=== PATIENT | male | born 1945 | race African-American/Black ===

== ENCOUNTER 2023-07-21 09:55 | Observation (INO) | payer OTHER ==
[2023-07-21] MEDS ORDERED: SODIUM CHLORIDE 1,000 ML IV SCH (10:00)
[2023-07-21 11:00] LABS: BASO % 0.5 % (0-2.0); EOS % 0.6 % (0-4.5); HEMATOCRIT 37.9 % (35.4-49); HEMOGLOBIN 12.4 GM/dL (11.7-16.9); LYMPH % 8.6 % (8-40); MCH 29.7 pg (25.7-33.7); MCHC 32.8 g/dl (32.0-35.9); MEAN CELL VOLUME 90.4 fl (80-96); MEAN PLT VOLUME 7.5 fl (7.5-11.1); MONO % 7.1 % (3.8-10.2); NEUT % 83.2 % (42.8-82.8); PLATELET COUNT 199 10^3/uL (134-434); RBC 4.19 M/mm3 (4.00-5.60); RDW 14.3 % (11.9-15.9)
[2023-07-21 11:04] LABS: EPI CELLS 6 /uL (0-25.1); HYALINE CASTS 0 /uL (0-3.1); PH,URINE 5.5 (5.0-8.0); URINE APPEARANCE CLEAR; URINE BACTERIA 3 /uL (0-1359); URINE BILIRUBIN NEGATIVE (NEGATIVE); URINE COLOR YELLOW; URINE GLUCOSE (UA) NEGATIVE (NEGATIVE); URINE KETONE 2+ (NEGATIVE); URINE LEUK ESTERASE NEGATIVE (NEGATIVE); URINE NITRITE NEGATIVE (NEGATIVE); URINE PROTEIN TRACE (NEGATIVE); URINE RBC 32 /uL (0-23.9); URINE UROBILINOGEN 0.2 mg/dL (0.2-1.0); URINE WBC 4 /uL (0-25.8)
[2023-07-21 11:29] LABS: CHLORIDE 101 mmol/L (98-107); POTASSIUM 5.7 mmol/L (3.5-5.1); SODIUM 136 mmol/L (136-145)
[2023-07-21 11:30] LABS: CALCIUM 9.4 mg/dL (8.5-10.1)
[2023-07-21 11:34] LABS: ALBUMIN 4.1 g/dl (3.4-5.0); ANION GAP 10 mmol/L (4-13); BLOOD UREA NITROGEN 18.7 mg/dL (7-18); CO2 25 mmol/L (21-32); CREATININE 0.8 mg/dL (0.55-1.3); GLUCOSE,RANDOM 87 mg/dL (74-106); SGOT/AST 66 U/L (15-37); SGPT/ALT 32 U/L (13-61)
[2023-07-21 11:35] LABS: CHOLESTEROL 238 mg/dL (50-200)
[2023-07-21 11:36] LABS: TOT PROT 9.1 g/dl (6.4-8.2)
[2023-07-21 11:37] LABS: BILIRUBIN,TOTAL 0.6 mg/dL (0.2-1); LDL CHOLESTEROL (ONLY SJRH) 159 mg/dL (5-100)
[2023-07-21 11:38] LABS: ALK PHOS 84 U/L (45-117); HDL CHOLESTEROL 61 mg/dL (40-60)
[2023-07-21] MEDS: SODIUM CHLORIDE 0.9% 500 ML INFUS.BAG IV ONE (11:38)
[2023-07-21 12:09] LABS: HEMATOCRIT 36.3 % (35.4-49); HEMOGLOBIN 11.8 GM/dL (11.7-16.9); MCH 29.4 pg (25.7-33.7); MCHC 32.4 g/dl (32.0-35.9); MEAN CELL VOLUME 90.7 fl (80-96); MEAN PLT VOLUME 6.6 fl (7.5-11.1); PLATELET COUNT 197 10^3/uL (134-434); RDW 14.5 % (11.9-15.9); WHITE BLOOD COUNT 9.3 K/mm3 (4.0-10.0)
[2023-07-21] MEDS: ASPIRIN 81 MG CHEWABLE TABLETS PO ONE (12:18)
[2023-07-21] MEDS ORDERED: ASPIRIN 81 MG CHEWABLE TABLETS ONE (12:20)
[2023-07-21 12:34] LABS: POTASSIUM 3.7 mmol/L (3.5-5.1)
[2023-07-21 12:36] LABS: BLOOD UREA NITROGEN 19.4 mg/dL (7-18); CALCIUM 9.2 mg/dL (8.5-10.1)
[2023-07-21 12:37] LABS: ALBUMIN 3.5 g/dl (3.4-5.0)
[2023-07-21 12:39] LABS: CREATININE 0.7 mg/dL (0.55-1.3)
[2023-07-21 12:41] LABS: BILIRUBIN,TOTAL 0.4 mg/dL (0.2-1); TOT PROT 7.7 g/dl (6.4-8.2)
[2023-07-21 12:45] LABS: INR 1.18 (0.83-1.09); PROTHROMBIN TIME (PATIENT) 13.7 SEC (9.7-13.0)
[2023-07-21 12:47] LABS: ACTIVATED PTT 28.2 SECONDS (25.2-36.5)
[2023-07-21] MEDS: ATORVASTATIN CA 10 MG TABLET (FP) PO SCH (21:49)
[2023-07-21 23:43] VITALS: BMI 25.4
[2023-07-22 07:21] LABS: INR 1.11 (0.83-1.09); PROTHROMBIN TIME (PATIENT) 12.9 SEC (9.7-13.0)
[2023-07-22 07:23] LABS: HEMATOCRIT 35.8 % (35.4-49); HEMOGLOBIN 11.9 GM/dL (11.7-16.9); MCH 29.9 pg (25.7-33.7); MCHC 33.2 g/dl (32.0-35.9); MEAN CELL VOLUME 90.2 fl (80-96); MEAN PLT VOLUME 7.4 fl (7.5-11.1); PLATELET COUNT 188 10^3/uL (134-434); RBC 3.97 M/mm3 (4.00-5.60); RDW 14.6 % (11.9-15.9); WHITE BLOOD COUNT 5.6 K/mm3 (4.0-10.0)
[2023-07-22 08:14] LABS: POTASSIUM 4.4 mmol/L (3.5-5.1)
[2023-07-22 08:30] LABS: CALCIUM 8.9 mg/dL (8.5-10.1)
[2023-07-22 08:31] LABS: BLOOD UREA NITROGEN 19.2 mg/dL (7-18)
[2023-07-22 08:34] LABS: CREATININE 0.7 mg/dL (0.55-1.3); PHOSPHOROUS 3.2 mg/dL (2.5-4.9)
[2023-07-22] MEDS: ENOXAPARIN NA (PORCINE) 40 MG/0.4 ML DISP.SYRIN SQ SCH (09:20)
[2023-07-22] MEDS: amLODIPine BESYLATE 5 MG TABLET (FP) PO SCH (09:21)
[2023-07-22] MEDS: MELATONIN 5 MG TABLETS PO SCH (21:52)
[2023-07-23] MEDS: MELATONIN 5 MG TABLETS PO SCH (21:12)
[2023-07-24 08:20] LABS: POTASSIUM 3.7 mmol/L (3.5-5.1)
[2023-07-24 08:25] LABS: ALBUMIN 3.3 g/dl (3.4-5.0); BLOOD UREA NITROGEN 16.5 mg/dL (7-18); CALCIUM 8.8 mg/dL (8.5-10.1)
[2023-07-24 08:28] LABS: CREATININE 0.8 mg/dL (0.55-1.3)
[2023-07-24 08:29] LABS: BILIRUBIN,TOTAL 0.4 mg/dL (0.2-1); TOT PROT 7.4 g/dl (6.4-8.2)
[2023-07-24] MEDS: amLODIPine BESYLATE 5 MG TABLET (FP) PO SCH (09:35)
[2023-07-24] MEDS: ENOXAPARIN NA (PORCINE) 40 MG/0.4 ML DISP.SYRIN SQ SCH (09:36)
[2023-07-24] MEDS: SODIUM CHLORIDE 1,000 ML IV SCH (14:07)
[2023-07-25 20:35] LABS: HEMATOCRIT 43.6 % (35.4-49); HEMOGLOBIN 14.6 GM/dL (11.7-16.9); MCH 29.9 pg (25.7-33.7); MCHC 33.4 g/dl (32.0-35.9); MEAN CELL VOLUME 89.5 fl (80-96); MEAN PLT VOLUME 7.5 fl (7.5-11.1); PLATELET COUNT 240 10^3/uL (134-434); RBC 4.87 M/mm3 (4.00-5.60); RDW 14.9 % (11.9-15.9); WHITE BLOOD COUNT 7.2 K/mm3 (4.0-10.0)
[2023-07-25 20:48] LABS: HEMATOCRIT 42.6 % (35.4-49); HEMOGLOBIN 14.1 GM/dL (11.7-16.9); MCH 29.9 pg (25.7-33.7); MCHC 33.1 g/dl (32.0-35.9); MEAN CELL VOLUME 90.4 fl (80-96); PLATELET COUNT 205 10^3/uL (134-434); RBC 4.71 M/mm3 (4.00-5.60); RDW 14.6 % (11.9-15.9); WHITE BLOOD COUNT 6.4 K/mm3 (4.0-10.0)
[2023-07-25] MEDS: QUEtiapine FUMARATE 25 MG TABLET PO SCH (21:22)
[2023-07-25] MEDS: SODIUM CHLORIDE 1,000 ML IV SCH (21:22)
[2023-07-25] MEDS: PANTOPRAZOLE SODIUM 40 MG VIAL IVPUSH SCH (21:22)
[2023-07-26 07:09] LABS: HEMATOCRIT 38.1 % (35.4-49); HEMOGLOBIN 12.6 GM/dL (11.7-16.9); MCH 29.9 pg (25.7-33.7); MEAN CELL VOLUME 90.5 fl (80-96); MEAN PLT VOLUME 7.3 fl (7.5-11.1); PLATELET COUNT 188 10^3/uL (134-434); RBC 4.21 M/mm3 (4.00-5.60); RDW 14.3 % (11.9-15.9); WHITE BLOOD COUNT 4.6 K/mm3 (4.0-10.0)
[2023-07-26 08:01] LABS: POTASSIUM 4.1 mmol/L (3.5-5.1)
[2023-07-26 08:04] LABS: CALCIUM 8.8 mg/dL (8.5-10.1)
[2023-07-26 08:05] LABS: BLOOD UREA NITROGEN 18.7 mg/dL (7-18)
[2023-07-26 08:07] LABS: CREATININE 0.7 mg/dL (0.55-1.3)
[2023-07-26 08:09] LABS: BILIRUBIN,TOTAL 0.4 mg/dL (0.2-1); TOT PROT 7.1 g/dl (6.4-8.2)
[2023-07-26 09:03] VITALS: RESP 18
[2023-07-26 11:55] LABS: BASO % 1.1 % (0-2.0); EOS % 6.2 % (0-4.5); HEMOGLOBIN 12.2 GM/dL (11.7-16.9); LYMPH % 28.6 % (8-40); MCH 29.2 pg (25.7-33.7); MEAN CELL VOLUME 91.3 fl (80-96); MEAN PLT VOLUME 7.2 fl (7.5-11.1); MONO % 11.8 % (3.8-10.2); NEUT % 52.3 % (42.8-82.8); PLATELET COUNT 195 10^3/uL (134-434); RBC 4.16 M/mm3 (4.00-5.60); RDW 14.4 % (11.9-15.9); WHITE BLOOD COUNT 4.8 K/mm3 (4.0-10.0)
[2023-07-26 18:16] VITALS: BP 118/60; PULSE 71; TEMP 97.2
== END 2023-07-26 19:09 ==
LOC: JER 09:55 → INTOOBSV 11:49 → UNDOADMOB 11:49 → JERBED 11:49 → J4W 19:56
PROVIDERS: ADMIT Internal Medicine; ATTEND Internal Medicine
PROC: 3E023GC Introduction of Other Therapeutic Substance into Muscle, Percutaneous Approach (ICD-10-PCS; principal; 2023-07-21)
PROC: 3E033GC Introduction of Other Therapeutic Substance into Peripheral Vein, Percutaneous Approach (ICD-10-PCS; 2023-07-21)
PROC: 3E0337Z Introduction of Electrolytic and Water Balance Substance into Peripheral Vein, Percutaneous Approach (ICD-10-PCS; 2023-07-21)
DX: R41.82 Altered mental status, unspecified (principal); M62.82 Rhabdomyolysis; R77.8 Other specified abnormalities of plasma proteins; F03.90 Unspecified dementia, unspecified severity, without behavioral disturbance, psychotic disturbance, mood disturbance, and anxiety; Z91.83 Wandering in diseases classified elsewhere; I10 Essential (primary) hypertension; E78.5 Hyperlipidemia, unspecified; Z87.891 Personal history of nicotine dependence; C61 Malignant neoplasm of prostate; Z86.73 Personal history of transient ischemic attack (TIA), and cerebral infarction without residual deficits; Z95.1 Presence of aortocoronary bypass graft; R25.1 Tremor, unspecified
CPT/HCPCS: 36415; 70450-TC; 71045-TC-FY; 80048; 80053; 80061; 81003; 82550; 82553; 82607; 82746; 83036; 83735; 84100; 84443; 84484; 85025; 85027; 85610; 85730; 86850; 86900; 86901; 87635; 93005; 93010; 96361; 96372; 96374; 97116-GP; 97162-GP; 99285-25; G0378

== ENCOUNTER 2024-08-08 14:46 | Inpatient (IN) | payer OTHER ==
[2024-08-08] MEDS ORDERED: ACETAMINOPHEN INJECTION 100 ML ONE (14:51)
[2024-08-08 15:56] LABS: VENOUS O2 SATURATION 62.3 % (70-80); VENOUS PCO2 40.2 mmHg (38-52); VENOUS PH 7.421 (7.310-7.410)
[2024-08-08 15:59] LABS: BASO % 0.7 % (0-2.0); EOS % 0.2 % (0-4.5); HEMATOCRIT 30.4 % (35.4-49); HEMOGLOBIN 9.5 GM/dL (11.7-16.9); MCH 27.1 pg (25.7-33.7); MCHC 31.4 g/dl (32.0-35.9); MEAN CELL VOLUME 86.4 fl (80-96); MONO % 8.2 % (3.8-10.2); NEUT % 69.9 % (42.8-82.8); RBC 3.52 M/mm3 (4.00-5.60); RDW 20.5 % (11.9-15.9)
[2024-08-08] MEDS ORDERED: VANCOMYCIN HCL 1,500 MG in DEXTROSE 5%-WATER - 500 ML IVPB ONE (16:07)
[2024-08-08 16:12] LABS: INR 1.39 (0.83-1.09); PROTHROMBIN TIME (PATIENT) 15.2 SEC (9.7-13.0)
[2024-08-08 16:20] LABS: POTASSIUM 3.9 mmol/L (3.5-5.1)
[2024-08-08] MEDS: ACETAMINOPHEN 1000 MG/100 ML BAG IVPB ONE (16:22)
[2024-08-08] MEDS: SODIUM CHLORIDE 1,000 ML IV STA (16:22)
[2024-08-08 16:23] LABS: ALBUMIN 1.8 g/dl (3.4-5.0); CALCIUM 8.7 mg/dL (8.5-10.1)
[2024-08-08 16:24] LABS: BLOOD UREA NITROGEN 36.7 mg/dL (7-18)
[2024-08-08 16:27] LABS: CREATININE 0.5 mg/dL (0.55-1.3)
[2024-08-08 16:28] LABS: BILIRUBIN,TOTAL 0.6 mg/dL (0.2-1); TOT PROT 5.5 g/dl (6.4-8.2)
[2024-08-08 16:29] LABS: OVALOCYTE 1+; PLATELET COUNT 574 10^3/uL (134-434); TARGET CELLS 1+
[2024-08-08 16:30] LABS: ANISOCYTOSIS 2+; LACTIC ACID 3.4 mmol/L (0.4-2.0); PLATELET ESTIMATE INCREASED
[2024-08-08] MEDS: PIPERACILLIN/TAZOB 3.375 GM 3.375 GM in DEXTROSE 5%-WATER - 50 ML IVPB ONE (17:00)
[2024-08-08] MEDS ORDERED: PIPERACILLIN/TAZOB 3.375 GM 3.375 GM/50 ML BAG IVPB ONE (17:02)
[2024-08-08 17:09] LABS: EPI CELLS 12 /uL (0-25.1); HYALINE CASTS 1 /uL (0-3.1); PH,URINE 6.5 (5.0-8.0); URINE APPEARANCE CLEAR; URINE BACTERIA 1 /uL (0-1359); URINE BILIRUBIN NEGATIVE (NEGATIVE); URINE COLOR YELLOW; URINE GLUCOSE (UA) NEGATIVE (NEGATIVE); URINE KETONE NEGATIVE (NEGATIVE); URINE LEUK ESTERASE NEGATIVE (NEGATIVE); URINE NITRITE NEGATIVE (NEGATIVE); URINE PROTEIN 1+ (NEGATIVE); URINE RBC 31 /uL (0-23.9); URINE WBC 12 /uL (0-25.8)
[2024-08-08] MEDS: SODIUM CHLORIDE 0.9% 500 ML INFUS.BAG IV ONE ×2 (18:40→19:53)
[2024-08-08] MEDS: VANCOMYCIN PREMIX 1.5 GM 1,500 MG/300 ML BAG IVPB ONE (18:41)
[2024-08-08 20:59] LABS: LACTIC ACID 2.2 mmol/L (0.4-2.0)
[2024-08-08] MEDS: MUPIROCIN 2% TOPICAL OINTMENT FOR DECOLONIZATION NS SCH (21:07)
[2024-08-08] MEDS: CHLORHEXIDINE GLUCONATE 4% CLEANSER FOR DECOLONIZATION TP SCH (21:07)
[2024-08-08] MEDS: SODIUM CHLORIDE 1,000 ML IV SCH (21:09)
[2024-08-09] MEDS: PIPERACILLIN/TAZOB 3.375 GM 3.375 GM in DEXTROSE 5%-WATER - 50 ML IVPB SCH (01:37)
[2024-08-09 07:25] LABS: HEMATOCRIT 24.8 % (35.4-49); HEMOGLOBIN 7.9 GM/dL (11.7-16.9); MCH 27.6 pg (25.7-33.7); MCHC 31.7 g/dl (32.0-35.9); MEAN CELL VOLUME 87.3 fl (80-96); PLATELET COUNT 493 10^3/uL (134-434); RBC 2.84 M/mm3 (4.00-5.60); RDW 20.1 % (11.9-15.9); WHITE BLOOD COUNT 10.5 K/mm3 (4.0-10.0)
[2024-08-09 07:41] LABS: CHLORIDE 109 mmol/L (98-107); POTASSIUM 3.7 mmol/L (3.5-5.1); SODIUM 140 mmol/L (136-145)
[2024-08-09 07:43] LABS: ALBUMIN 1.5 g/dl (3.4-5.0); ANION GAP 9 mmol/L (4-13); BLOOD UREA NITROGEN 21.4 mg/dL (7-18); CALCIUM 7.7 mg/dL (8.5-10.1); CO2 22 mmol/L (21-32); MAGNESIUM 1.8 mg/dL (1.8-2.4)
[2024-08-09 07:46] LABS: CREATININE 0.2 mg/dL (0.55-1.3); SGOT/AST 49 U/L (15-37); SGPT/ALT 123 U/L (13-61)
[2024-08-09 07:47] LABS: PHOSPHOROUS 3.3 mg/dL (2.5-4.9)
[2024-08-09 07:48] LABS: BILIRUBIN,TOTAL 0.4 mg/dL (0.2-1); TOT PROT 4.9 g/dl (6.4-8.2)
[2024-08-09 07:49] LABS: ALK PHOS 82 U/L (45-117)
[2024-08-09 07:50] LABS: GLUCOSE,RANDOM 49 mg/dL (74-106)
[2024-08-09] MEDS ORDERED: DEXTROSE 50%-WATER 25 GM/50 ML DISP.SYRIN ONE (07:52)
[2024-08-09] MEDS: DEXTROSE 50%-WATER - 25 GM/50 ML VIAL IVPUSH ONE (08:38)
[2024-08-09] MEDS: D5-NS + 20 MEQ KCL - 20 MEQ/1,000 ML INFUS.BAG IV SCH (08:57)
[2024-08-09] MEDS: ENOXAPARIN NA (PORCINE) 40 MG/0.4 ML DISP.SYRIN SQ SCH (09:25)
[2024-08-09 09:51] LABS: ANISOCYTOSIS 1+; MACROCYTOSIS 0; OVALOCYTE 1+
[2024-08-09] MEDS: ROSUVASTATIN CA 5 MG TABLET PO SCH (22:57)
[2024-08-10] MEDS: PIPERACILLIN/TAZOB 3.375 GM 50 ML IVPB SCH (03:30)
[2024-08-10] MEDS: VANCOMYCIN 1 GM PREMIX (F) 1 GM/200 ML BAG IVPB ONE (06:47)
[2024-08-10] MEDS: amLODIPine BESYLATE 5 MG TABLET (FP) PO SCH (10:09)
[2024-08-10] MEDS: VANCOMYCIN 1 GM PREMIX (F) 1 GM/200 ML BAG IVPB SCH (16:00)
[2024-08-10] MEDS: PIPERACILLIN/TAZOB 3.375 GM 3.375 GM in DEXTROSE 5%-WATER - 50 ML IVPB SCH (19:47)
[2024-08-10] MEDS: DEXTROSE 50%-WATER - 25 GM/50 ML VIAL IVPUSH ONE (19:47)
[2024-08-10] MEDS: VANCOMYCIN 1,000 MG in DEXTROSE 5%-WATER - 250 ML IVPB SCH (19:48)
[2024-08-10] MEDS: D5-NS + 20 MEQ KCL - 20 MEQ/1,000 ML INFUS.BAG IV SCH (20:16)
[2024-08-10] MEDS: ASCORBIC ACID 250 MG TABLET (FP) PEG SCH (21:45)
[2024-08-11] MEDS: ACETAMINOPHEN 650 MG/20.3 ML ORAL SOLUTION (CUPS) PEG ONE (08:07)
[2024-08-11 10:04] LABS: EOS % 0.6 % (0-4.5); HEMATOCRIT 23.8 % (35.4-49); HEMOGLOBIN 7.2 GM/dL (11.7-16.9); LYMPH % 6.6 % (8-40); MCH 26.6 pg (25.7-33.7); MCHC 30.3 g/dl (32.0-35.9); MEAN CELL VOLUME 87.7 fl (80-96); MONO % 3.8 % (3.8-10.2); PLATELET COUNT 410 10^3/uL (134-434); RBC 2.71 M/mm3 (4.00-5.60); RDW 20.4 % (11.9-15.9); WHITE BLOOD COUNT 13.7 K/mm3 (4.0-10.0)
[2024-08-11] MEDS: ENOXAPARIN NA (PORCINE) 40 MG/0.4 ML DISP.SYRIN SQ SCH (10:36)
[2024-08-11] MEDS: MULTIVITAMINS (DAILY MVI) TABLET (FP) PO SCH (10:36)
[2024-08-11] MEDS: ZINC SULFATE 220 MG CAPSULE (FP) PEG SCH (10:37)
[2024-08-11 10:53] LABS: POTASSIUM 3.1 mmol/L (3.5-5.1)
[2024-08-11 11:00] LABS: BILIRUBIN,TOTAL 0.2 mg/dL (0.2-1)
[2024-08-11 11:15] LABS: ALBUMIN 1.4 g/dl (3.4-5.0); CALCIUM 7.8 mg/dL (8.5-10.1)
[2024-08-11 11:16] LABS: BLOOD UREA NITROGEN 12.5 mg/dL (7-18); MAGNESIUM 1.7 mg/dL (1.8-2.4)
[2024-08-11 11:19] LABS: CREATININE 0.2 mg/dL (0.55-1.3)
[2024-08-11 11:20] LABS: TOT PROT 4.7 g/dl (6.4-8.2)
[2024-08-11] MEDS: POTASSIUM CHLORIDE ORAL LIQUID 20 MEQ/15 ML PEG ONE (11:49)
[2024-08-11] MEDS: MEROPENEM-0.9% SODIUM CHLORIDE 1 GM/50 ML BAG IVPB SCH (12:02)
[2024-08-11] MEDS: MAGNESIUM 1GM/D5W - 1 GM/100 ML IVPB IVPB ONE (14:16)
[2024-08-12 08:27] LABS: BASO % 0.3 % (0-2.0); EOS % 1.9 % (0-4.5); HEMATOCRIT 23.1 % (35.4-49); HEMATOCRIT 23.3 % (35.4-49); HEMOGLOBIN 7.3 GM/dL (11.7-16.9); HEMOGLOBIN 7.4 GM/dL (11.7-16.9); LYMPH % 11.2 % (8-40); MCH 26.9 pg (25.7-33.7); MCH 27.4 pg (25.7-33.7); MCHC 31.5 g/dl (32.0-35.9); MCHC 31.8 g/dl (32.0-35.9); MEAN CELL VOLUME 85.6 fl (80-96); MEAN CELL VOLUME 86.2 fl (80-96); NEUT % 79.6 % (42.8-82.8); PLATELET COUNT 384 10^3/uL (134-434); PLATELET COUNT 391 10^3/uL (134-434); RDW 19.8 % (11.9-15.9); RDW 20.4 % (11.9-15.9); WHITE BLOOD COUNT 10.7 K/mm3 (4.0-10.0); WHITE BLOOD COUNT 11.1 K/mm3 (4.0-10.0)
[2024-08-12 08:32] LABS: POTASSIUM 3.7 mmol/L (3.5-5.1)
[2024-08-12 08:39] LABS: CALCIUM 7.5 mg/dL (8.5-10.1)
[2024-08-12 08:40] LABS: ALBUMIN 1.4 g/dl (3.4-5.0); BLOOD UREA NITROGEN 9.8 mg/dL (7-18); MAGNESIUM 1.5 mg/dL (1.8-2.4)
[2024-08-12 08:43] LABS: CREATININE 0.2 mg/dL (0.55-1.3)
[2024-08-12 08:45] LABS: BILIRUBIN,TOTAL 0.2 mg/dL (0.2-1); TOT PROT 4.6 g/dl (6.4-8.2)
[2024-08-12 08:52] LABS: IRON SERUM 20 ug/dL (50-175); TOTAL IRON BINDING CAPACITY 108 ug/dL (250-450)
[2024-08-12 08:55] LABS: PHOSPHOROUS 1.1 mg/dL (2.5-4.9)
[2024-08-12] MEDS: amLODIPine BESYLATE 5 MG TABLET (FP) PEG SCH (10:14)
[2024-08-12] MEDS: MULTIVIT-MINERALS ORAL LIQUID PEG SCH (11:30)
[2024-08-12] MEDS: MAGNESIUM SULFATE IN WATER 2 GM/50 ML IVPB IVPB ONE (11:30)
[2024-08-12] MEDS: METOPROLOL TARTRATE 50 MG TABLET (FP) PEG SCH (11:30)
[2024-08-12] MEDS: NAPH,MB-DB/K PH,MBDB POWDER PACKET PEG ONE (11:30)
[2024-08-12] MEDS ORDERED: NAPH,MB-DB/K PH,MBDB POWDER PACKET PO SCH (14:00)
[2024-08-12] MEDS: ACETAMINOPHEN 650 MG/20.3 ML ORAL SOLUTION (CUPS) PEG PRN (14:42)
[2024-08-12] MEDS: NAPH,MB-DB/K PH,MBDB POWDER PACKET PEG SCH (14:42)
[2024-08-12] MEDS: ROSUVASTATIN CA 5 MG TABLET NR SCH (21:13)
[2024-08-13] MEDS: FAMOTIDINE 20 MG/2.5 ML ORAL LIQUID PEG SCH (10:26)
[2024-08-13 10:33] LABS: BASO % 0.2 % (0-2.0); EOS % 1.3 % (0-4.5); HEMATOCRIT 26.8 % (35.4-49); HEMOGLOBIN 8.4 GM/dL (11.7-16.9); LYMPH % 13.5 % (8-40); MCH 26.9 pg (25.7-33.7); MCHC 31.3 g/dl (32.0-35.9); MEAN CELL VOLUME 85.9 fl (80-96); MEAN PLT VOLUME 7.1 fl (7.5-11.1); MONO % 7.7 % (3.8-10.2); NEUT % 77.3 % (42.8-82.8); PLATELET COUNT 414 10^3/uL (134-434); RBC 3.11 M/mm3 (4.00-5.60); RDW 20.1 % (11.9-15.9); WHITE BLOOD COUNT 10.9 K/mm3 (4.0-10.0)
[2024-08-13 10:50] LABS: POTASSIUM 4.2 mmol/L (3.5-5.1)
[2024-08-13 10:52] LABS: ALBUMIN 1.5 g/dl (3.4-5.0)
[2024-08-13 10:53] LABS: BLOOD UREA NITROGEN 12.6 mg/dL (7-18); MAGNESIUM 1.8 mg/dL (1.8-2.4)
[2024-08-13 10:56] LABS: CREATININE 0.2 mg/dL (0.55-1.3); PHOSPHOROUS 2.9 mg/dL (2.5-4.9)
[2024-08-13 10:57] LABS: BILIRUBIN,TOTAL 0.2 mg/dL (0.2-1)
[2024-08-13] MEDS: MAGNESIUM OXIDE 400 MG TABLET (FP) GT ONE (12:15)
[2024-08-13] MEDS: COLLAGENASE CLOSTRIDIUM HIST. 30 GRAMS TUBE TP SCH (13:45)
[2024-08-13 14:16] VITALS: BMI 18.9
[2024-08-13] MEDS: VANCOMYCIN 1 GM PREMIX (F) 1 GM/200 ML BAG IVPB SCH (21:59)
[2024-08-14 07:56] LABS: BASO % 0.6 % (0-2.0); EOS % 2.2 % (0-4.5); HEMATOCRIT 23.3 % (35.4-49); HEMOGLOBIN 7.4 GM/dL (11.7-16.9); LYMPH % 17.1 % (8-40); MCH 27.2 pg (25.7-33.7); MCHC 31.7 g/dl (32.0-35.9); MEAN PLT VOLUME 7.7 fl (7.5-11.1); MONO % 9.1 % (3.8-10.2); PLATELET COUNT 349 10^3/uL (134-434); RBC 2.71 M/mm3 (4.00-5.60); RDW 19.6 % (11.9-15.9); WHITE BLOOD COUNT 9.2 K/mm3 (4.0-10.0)
[2024-08-14] MEDS: HEPARIN NA (PORCINE) 5,000 UNITS/ML 1ML VIAL SQ SCH (22:00)
[2024-08-15 09:00] LABS: BASO % 0.2 % (0-2.0); EOS % 0.4 % (0-4.5); HEMATOCRIT 26.4 % (35.4-49); HEMOGLOBIN 8.3 GM/dL (11.7-16.9); LYMPH % 7.9 % (8-40); MCH 26.9 pg (25.7-33.7); MCHC 31.5 g/dl (32.0-35.9); MEAN CELL VOLUME 85.3 fl (80-96); MEAN PLT VOLUME 7.8 fl (7.5-11.1); MONO % 5.7 % (3.8-10.2); NEUT % 85.8 % (42.8-82.8); PLATELET COUNT 359 10^3/uL (134-434); RDW 19.8 % (11.9-15.9); WHITE BLOOD COUNT 11.7 K/mm3 (4.0-10.0)
[2024-08-15 09:17] LABS: POTASSIUM 3.8 mmol/L (3.5-5.1)
[2024-08-15 09:23] LABS: ALBUMIN 1.5 g/dl (3.4-5.0); BLOOD UREA NITROGEN 15.8 mg/dL (7-18); CALCIUM 7.8 mg/dL (8.5-10.1); MAGNESIUM 1.8 mg/dL (1.8-2.4)
[2024-08-15 09:26] LABS: CREATININE 0.2 mg/dL (0.55-1.3); PHOSPHOROUS 2.5 mg/dL (2.5-4.9)
[2024-08-15 09:27] LABS: BILIRUBIN,TOTAL 0.2 mg/dL (0.2-1)
[2024-08-15 09:28] LABS: TOT PROT 4.8 g/dl (6.4-8.2)
[2024-08-15] MEDS: SODIUM CHLORIDE 1,000 ML IV STA (23:28)
[2024-08-16] MEDS ORDERED: ALBUTEROL SO4 2.5/IPRATROPIUM 0.5 INH SOL 3 ML VIAL.NEB. NEB PRN (08:14)
[2024-08-16 09:55] LABS: BASO % 0.3 % (0-2.0); EOS % 0.4 % (0-4.5); HEMATOCRIT 22.6 % (35.4-49); MCH 26.3 pg (25.7-33.7); MCHC 30.8 g/dl (32.0-35.9); MEAN CELL VOLUME 85.6 fl (80-96); MEAN PLT VOLUME 7.8 fl (7.5-11.1); MONO % 4.9 % (3.8-10.2); NEUT % 86.4 % (42.8-82.8); PLATELET COUNT 354 10^3/uL (134-434); RBC 2.64 M/mm3 (4.00-5.60); RDW 19.5 % (11.9-15.9); WHITE BLOOD COUNT 17.2 K/mm3 (4.0-10.0)
[2024-08-16 10:00] LABS: HEMOGLOBIN 6.9 GM/dL (11.7-16.9)
[2024-08-16] MEDS ORDERED: PANTOPRAZOLE SODIUM 40 MG VIAL IVPUSH SCH (10:00)
[2024-08-16] MEDS ORDERED: PANTOPRAZOLE SODIUM 40 MG in SODIUM CHLORIDE 100 ML IVPB SCH (10:00)
[2024-08-16 10:14] LABS: POTASSIUM 3.8 mmol/L (3.5-5.1)
[2024-08-16 10:26] LABS: ALBUMIN 1.4 g/dl (3.4-5.0); BLOOD UREA NITROGEN 20.8 mg/dL (7-18); CALCIUM 7.6 mg/dL (8.5-10.1); CREATININE 0.3 mg/dL (0.55-1.3); MAGNESIUM 1.8 mg/dL (1.8-2.4)
[2024-08-16 10:28] LABS: BILIRUBIN,TOTAL 0.3 mg/dL (0.2-1); TOT PROT 4.6 g/dl (6.4-8.2)
[2024-08-16] MEDS: PANTOPRAZOLE SODIUM 40 MG VIAL IVPUSH SCH (12:58)
[2024-08-16] MEDS: ERTAPENEM SODIUM 1 GM in SODIUM CHLORIDE 50 ML IVPB SCH (13:58)
[2024-08-16] MEDS: PANTOPRAZOLE SODIUM 160 MG in SODIUM CHLORIDE 290 ML IVPB SCH (20:00)
[2024-08-17 08:50] LABS: POTASSIUM 3.8 mmol/L (3.5-5.1)
[2024-08-17 08:58] LABS: CALCIUM 8.3 mg/dL (8.5-10.1)
[2024-08-17 08:59] LABS: ALBUMIN 1.6 g/dl (3.4-5.0); BLOOD UREA NITROGEN 13.6 mg/dL (7-18); MAGNESIUM 1.8 mg/dL (1.8-2.4)
[2024-08-17 09:02] LABS: CREATININE 0.3 mg/dL (0.55-1.3)
[2024-08-17 09:03] LABS: BILIRUBIN,TOTAL 1.1 mg/dL (0.2-1)
[2024-08-17] MEDS: MINERAL OIL/PET HY-PHL TOPICAL OINTMENT 454 GM JAR TP SCH (11:45)
[2024-08-17 12:38] LABS: BASO % 0.5 % (0-2.0); EOS % 0.4 % (0-4.5); HEMATOCRIT 29.5 % (35.4-49); HEMOGLOBIN 9.5 GM/dL (11.7-16.9); LYMPH % 7.3 % (8-40); MCH 27.3 pg (25.7-33.7); MCHC 32.1 g/dl (32.0-35.9); MEAN CELL VOLUME 84.8 fl (80-96); MEAN PLT VOLUME 7.7 fl (7.5-11.1); MONO % 5.3 % (3.8-10.2); NEUT % 86.5 % (42.8-82.8); PLATELET COUNT 345 10^3/uL (134-434); RBC 3.48 M/mm3 (4.00-5.60); RDW 19.3 % (11.9-15.9); WHITE BLOOD COUNT 18.1 K/mm3 (4.0-10.0)
[2024-08-17 13:03] LABS: POTASSIUM 3.9 mmol/L (3.5-5.1)
[2024-08-17 13:05] LABS: ALBUMIN 1.6 g/dl (3.4-5.0); BLOOD UREA NITROGEN 14.6 mg/dL (7-18); CALCIUM 8.2 mg/dL (8.5-10.1)
[2024-08-17 13:08] LABS: CREATININE 0.3 mg/dL (0.55-1.3)
[2024-08-17 13:10] LABS: BILIRUBIN,TOTAL 0.7 mg/dL (0.2-1); TOT PROT 5.1 g/dl (6.4-8.2)
[2024-08-17] MEDS: DEXTROSE 5%-NORMAL SALINE 1,000 ML IV SCH (14:25)
[2024-08-17] MEDS: PANTOPRAZOLE SODIUM 40 MG VIAL IVPUSH SCH (22:04)
[2024-08-18 08:41] LABS: POTASSIUM 3.7 mmol/L (3.5-5.1)
[2024-08-18 08:49] LABS: CALCIUM 8.1 mg/dL (8.5-10.1)
[2024-08-18 08:50] LABS: ALBUMIN 1.6 g/dl (3.4-5.0); BLOOD UREA NITROGEN 9.8 mg/dL (7-18)
[2024-08-18 08:53] LABS: CREATININE 0.3 mg/dL (0.55-1.3); PHOSPHOROUS 3.1 mg/dL (2.5-4.9)
[2024-08-18 08:54] LABS: BILIRUBIN,TOTAL 0.8 mg/dL (0.2-1)
[2024-08-18 21:35] VITALS: TEMP 98.2
[2024-08-19 07:18] VITALS: BP 125/69; PULSE 90; RESP 18
[2024-08-19 08:33] LABS: BASO % 0.6 % (0-2.0); EOS % 1.3 % (0-4.5); HEMATOCRIT 30.6 % (35.4-49); HEMOGLOBIN 9.8 GM/dL (11.7-16.9); LYMPH % 8.5 % (8-40); MCH 27.6 pg (25.7-33.7); MEAN CELL VOLUME 86.3 fl (80-96); MEAN PLT VOLUME 7.6 fl (7.5-11.1); MONO % 6.3 % (3.8-10.2); NEUT % 83.3 % (42.8-82.8); PLATELET COUNT 421 10^3/uL (134-434); RBC 3.55 M/mm3 (4.00-5.60); RDW 18.8 % (11.9-15.9); WHITE BLOOD COUNT 10.7 K/mm3 (4.0-10.0)
[2024-08-19 09:01] LABS: POTASSIUM 3.5 mmol/L (3.5-5.1)
[2024-08-19 09:22] LABS: ALBUMIN 1.6 g/dl (3.4-5.0); BLOOD UREA NITROGEN 11.4 mg/dL (7-18); MAGNESIUM 2.3 mg/dL (1.8-2.4)
[2024-08-19 09:24] LABS: CREATININE 0.3 mg/dL (0.55-1.3)
[2024-08-19 09:25] LABS: PHOSPHOROUS 2.3 mg/dL (2.5-4.9)
[2024-08-19 09:26] LABS: TOT PROT 5.1 g/dl (6.4-8.2)
[2024-08-19 09:28] LABS: BILIRUBIN,TOTAL 0.6 mg/dL (0.2-1)
== END 2024-08-19 15:41 | DRG 871 ==
LOC: JER 14:46 → JERBED 17:32 → JICU 18:36 → J8W 08-09 17:10
PROVIDERS: ADMIT Internal Medicine Pulmonary Disease; ATTEND Nurse Practitioner Family
PROC: 05HM33Z Insertion of Infusion Device into Right Internal Jugular Vein, Percutaneous Approach (ICD-10-PCS; 2024-08-08)
PROC: 30233N1 Transfusion of Nonautologous Red Blood Cells into Peripheral Vein, Percutaneous Approach (ICD-10-PCS; principal; 2024-08-16)
DX: A41.59 Other Gram-negative sepsis (principal); E43 Unspecified severe protein-calorie malnutrition; J69.0 Pneumonitis due to inhalation of food and vomit; R53.2 Functional quadriplegia; J96.01 Acute respiratory failure with hypoxia; L89.213 Pressure ulcer of right hip, stage 3; E44.0 Moderate protein-calorie malnutrition; Z68.1 Body mass index [BMI] 19.9 or less, adult; R64 Cachexia; E87.20 Acidosis, unspecified; I10 Essential (primary) hypertension; L89.020 Pressure ulcer of left elbow, unstageable; F03.90 Unspecified dementia, unspecified severity, without behavioral disturbance, psychotic disturbance, mood disturbance, and anxiety; D63.8 Anemia in other chronic diseases classified elsewhere; I25.10 Atherosclerotic heart disease of native coronary artery without angina pectoris; E83.39 Other disorders of phosphorus metabolism; E78.5 Hyperlipidemia, unspecified; I48.91 Unspecified atrial fibrillation; L89.516 Pressure-induced deep tissue damage of right ankle; L89.626 Pressure-induced deep tissue damage of left heel; L89.322 Pressure ulcer of left buttock, stage 2; L89.222 Pressure ulcer of left hip, stage 2; L89.610 Pressure ulcer of right heel, unstageable; L89.896 Pressure-induced deep tissue damage of other site; R74.01 Elevation of levels of liver transaminase levels
CPT/HCPCS: 0241U-QW; 36415; 36430; 36511; 70450-TC; 71045-TC-FY; 73030-TC-RT-FY; 74018-TC-FY; 74176-TC; 76705-TC; 80053; 81003; 82272; 82550; 82607; 82728; 82746; 82803; 82962; 83540; 83550; 83605; 83735; 84100; 84484; 85025; 85027; 85610; 85730; 86704; 86708; 86803; 86850; 86900; 86901; 86922; 87040; 87081; 87086; 87186; 87340; 87481; 87517; 87899; 93005; 93010; 97161-GP; 99285-25; G0480; J0131; J1644; P9038; P9058

== ENCOUNTER 2024-08-23 12:01 | Inpatient (IN) | payer OTHER ==
[2024-08-23 13:25] LABS: ABSOLUTE IMMATURE GRANULOCYTES 0.04 x10^3/uL (0.0-0.031); BASOPHILS # 0.08 x10^3/uL (0.01-0.08); EOSINOPHIL % 1.4 % (0.8-7.0); EOSINOPHILS # 0.11 x10^3/uL (0.04-0.54); HEMATOCRIT 29.2 % (40.1-51.0); HEMOGLOBIN 8.8 g/dL (13.7-17.5); MCHC 30.1 g/dl (32.3-36.5); MEAN CELL VOLUME 89.6 fl (79.0-92.2); MEAN PLT VOLUME 9.4 fl (9.4-12.4); MONOCYTE # 0.77 x10^3/uL (0.30-0.82); MONOCYTE % 9.6 % (5.3-12.2); PLATELET COUNT # 446 x10^3/uL (163-337)
[2024-08-23 13:31] LABS: INR 1.75 (0.83-1.09); PROTHROMBIN TIME (PATIENT) 19.3 SEC (9.7-13.0)
[2024-08-23 13:34] LABS: ACTIVATED PTT 31.3 SECONDS (25.2-36.5)
[2024-08-23 13:46] LABS: POTASSIUM 4.2 mmol/L (3.5-5.1)
[2024-08-23 13:49] LABS: ALBUMIN 1.8 g/dl (3.4-5.0); BLOOD UREA NITROGEN 26.6 mg/dL (7-18); CALCIUM 8.6 mg/dL (8.5-10.1)
[2024-08-23 13:53] LABS: BILIRUBIN,TOTAL 0.3 mg/dL (0.2-1); TOT PROT 5.7 g/dl (6.4-8.2)
[2024-08-23 14:00] LABS: CREATININE 0.3 mg/dL (0.55-1.3)
[2024-08-23 14:03] LABS: VENOUS BASE EXCESS 1.9 mmol/L (-2-2); VENOUS O2 SATURATION 90.6 % (70-80); VENOUS PCO2 41.4 mmHg (38-52); VENOUS PH 7.424 (7.310-7.410)
[2024-08-23] MEDS: LACTATED RINGERS SOLUTION 1000 ML INFUS.BAG IV ONE ×2 (14:30→17:07)
[2024-08-23] MEDS: PIPERACILLIN/TAZOB 4.5 GM 4.5 GM in DEXTROSE 5%-WATER 100 ML IVPB ONE (17:07)
[2024-08-23] MEDS ORDERED: PIPERACILLIN/TAZOB 4.5 GM 4.5 GM/100 ML BAG IVPB ONE (17:08)
[2024-08-23] MEDS ORDERED: VANCOMYCIN 1 GM PREMIX (F) 1 GM/200 ML BAG ONE (18:01)
[2024-08-23] MEDS: VANCOMYCIN 1,000 MG in DEXTROSE 5%-WATER - 250 ML IVPB ONE (18:20)
[2024-08-23] MEDS: ROSUVASTATIN CA 5 MG TABLET NR SCH (22:23)
[2024-08-23] MEDS: QUEtiapine FUMARATE 25 MG TABLET PEG SCH (22:23)
[2024-08-23] MEDS: METOPROLOL TARTRATE 50 MG TABLET (FP) PEG SCH (22:24)
[2024-08-23] MEDS: MINERAL OIL/PET HY-PHL TOPICAL OINTMENT 454 GM JAR TP SCH (22:24)
[2024-08-24] MEDS ORDERED: PIPERACILLIN/TAZOB 3.375 GM 3.375 GM in DEXTROSE 5%-WATER - 50 ML IVPB SCH (01:00)
[2024-08-24 01:18] VITALS: BMI 19.7
[2024-08-24] MEDS: PIPERACILLIN/TAZOB 3.375 GM 3.375 GM in DEXTROSE 5%-WATER - 50 ML IVPB SCH (02:19)
[2024-08-24 06:49] LABS: HEMATOCRIT 28.6 % (40.1-51.0); HEMOGLOBIN 8.7 g/dL (13.7-17.5); MCHC 30.4 g/dl (32.3-36.5); MEAN CELL VOLUME 88.3 fl (79.0-92.2); MEAN PLT VOLUME 9.8 fl (9.4-12.4); PLATELET COUNT # 497 x10^3/uL (163-337); RDW 17.8 % (12.2-16.6)
[2024-08-24 06:53] LABS: EPI CELLS 6 /uL (0-25.1); HYALINE CASTS 0 /uL (0-3.1); PH,URINE 8.5 (5.0-8.0); URINE APPEARANCE CLEAR; URINE BACTERIA 6 /uL (0-1359); URINE BILIRUBIN NEGATIVE (NEGATIVE); URINE COLOR YELLOW; URINE GLUCOSE (UA) 3+ (NEGATIVE); URINE KETONE NEGATIVE (NEGATIVE); URINE LEUK ESTERASE NEGATIVE (NEGATIVE); URINE NITRITE NEGATIVE (NEGATIVE); URINE PROTEIN TRACE (NEGATIVE); URINE RBC 495 /uL (0-23.9); URINE WBC 35 /uL (0-25.8)
[2024-08-24 07:07] LABS: POTASSIUM 3.9 mmol/L (3.5-5.1)
[2024-08-24 07:13] LABS: ALBUMIN 1.8 g/dl (3.4-5.0); CALCIUM 8.5 mg/dL (8.5-10.1)
[2024-08-24 07:17] LABS: CREATININE 0.3 mg/dL (0.55-1.3)
[2024-08-24 07:18] LABS: BILIRUBIN,TOTAL 0.4 mg/dL (0.2-1); TOT PROT 5.5 g/dl (6.4-8.2)
[2024-08-24] MEDS ORDERED: COLLAGENASE CLOSTRIDIUM HIST. 30 GRAMS TUBE TP SCH (10:00)
[2024-08-24] MEDS ORDERED: amLODIPine BESYLATE 5 MG TABLET (FP) PEG SCH (10:00)
[2024-08-24] MEDS: amLODIPine BESYLATE 5 MG TABLET (FP) PEG SCH (10:40)
[2024-08-24] MEDS: ENOXAPARIN NA (PORCINE) 40 MG/0.4 ML DISP.SYRIN SQ SCH (10:40)
[2024-08-24] MEDS: METOPROLOL TARTRATE 50 MG TABLET (FP) PEG SCH (10:40)
[2024-08-24 13:42] VITALS: PULSE 52
[2024-08-24 15:00] VITALS: BP 129/58; RESP 18; TEMP 98.6
[2024-08-24] MEDS ORDERED: AMOX TR/POTASSIUM CLAVULANATE 600 MG/5 ML GT SCH (17:30)
== END 2024-08-24 15:57 | DRG 177 ==
LOC: JER 12:01 → JERBED 17:01 → J4S 20:22
PROVIDERS: ADMIT Internal Medicine; ATTEND Nurse Practitioner Acute Care
DX: J69.0 Pneumonitis due to inhalation of food and vomit (principal); E43 Unspecified severe protein-calorie malnutrition; G93.41 Metabolic encephalopathy; R53.2 Functional quadriplegia; J90 Pleural effusion, not elsewhere classified; Z68.1 Body mass index [BMI] 19.9 or less, adult; R64 Cachexia; F03.90 Unspecified dementia, unspecified severity, without behavioral disturbance, psychotic disturbance, mood disturbance, and anxiety; I10 Essential (primary) hypertension; E78.5 Hyperlipidemia, unspecified; I25.10 Atherosclerotic heart disease of native coronary artery without angina pectoris; Z93.1 Gastrostomy status; R09.02 Hypoxemia
CPT/HCPCS: 0241U-QW; 36415; 71045-TC-FY; 71275-TC; 80053; 81003; 82803; 83605; 83735; 84100; 84484; 85025; 85027; 85379; 85610; 85730; 87081; 87086; 93005; 93010; 99285-25

== ENCOUNTER 2024-10-27 00:44 | Inpatient (IN) | payer OTHER ==
[2024-10-27 02:17] LABS: ABSOLUTE IMMATURE GRANULOCYTES 0.09 x10^3/uL (0.0-0.031); BASOPHILS # 0.03 x10^3/uL (0.01-0.08); EOSINOPHIL % 0.9 % (0.8-7.0); EOSINOPHILS # 0.13 x10^3/uL (0.04-0.54); HEMATOCRIT 19.7 % (40.1-51.0); HEMOGLOBIN 5.9 g/dL (13.7-17.5); MCHC 29.9 g/dl (32.3-36.5); MEAN PLT VOLUME 8.6 fl (9.4-12.4); MONOCYTE # 0.69 x10^3/uL (0.30-0.82); MONOCYTE % 4.7 % (5.3-12.2); PLATELET COUNT 538 x10^3/uL (163-337); RDW 19.6 % (12.2-16.6); VENOUS BASE EXCESS -0.6 mmol/L (-2-2); VENOUS PCO2 39.3 mmHg (38-52); VENOUS PH 7.404 (7.310-7.410)
[2024-10-27] MEDS: SODIUM CHLORIDE 0.9% 500 ML INFUS.BAG IV ONE (02:20)
[2024-10-27] MEDS: VANCOMYCIN 1,000 MG in DEXTROSE 5%-WATER - 250 ML IVPB ONE (02:20)
[2024-10-27 02:23] LABS: INR 1.32 (0.83-1.09); PROTHROMBIN TIME (PATIENT) 14.4 SEC (9.7-13.0)
[2024-10-27 02:26] LABS: ACTIVATED PTT 27.1 SECONDS (25.2-36.5)
[2024-10-27 02:37] LABS: POTASSIUM 4.2 mmol/L (3.5-5.1)
[2024-10-27 02:39] LABS: CALCIUM 8.8 mg/dL (8.5-10.1)
[2024-10-27 02:40] LABS: ALBUMIN 1.6 g/dl (3.4-5.0); BLOOD UREA NITROGEN 21.2 mg/dL (7-18)
[2024-10-27 02:43] LABS: CREATININE 0.2 mg/dL (0.55-1.3)
[2024-10-27 02:44] LABS: BILIRUBIN,TOTAL 0.2 mg/dL (0.2-1); TOT PROT 6.2 g/dl (6.4-8.2)
[2024-10-27 02:47] LABS: EPI CELLS 10 /uL (0-25.1); HYALINE CASTS 0 /uL (0-3.1); PH,URINE 8.5 (5.0-8.0); URINE APPEARANCE CLEAR; URINE BACTERIA 5 /uL (0-1359); URINE BILIRUBIN NEGATIVE (NEGATIVE); URINE COLOR YELLOW; URINE GLUCOSE (UA) NEGATIVE (NEGATIVE); URINE KETONE NEGATIVE (NEGATIVE); URINE LEUK ESTERASE NEGATIVE (NEGATIVE); URINE NITRITE NEGATIVE (NEGATIVE); URINE PROTEIN TRACE (NEGATIVE); URINE RBC 217 /uL (0-23.9); URINE WBC 4 /uL (0-25.8)
[2024-10-27] MEDS ORDERED: VANCOMYCIN 1 GM PREMIX (F) 1 GM/200 ML BAG ONE (02:59)
[2024-10-27] MEDS: ALBUTEROL SO4 2.5/IPRATROPIUM 0.5 INH SOL 3 ML VIAL.NEB. NEB SCH (08:38)
[2024-10-27 09:13] LABS: Reticulocyte % 2.92 % (0.51-1.81)
[2024-10-27] MEDS: ENOXAPARIN NA (PORCINE) 40 MG/0.4 ML DISP.SYRIN SQ SCH (09:16)
[2024-10-27] MEDS: MEROPENEM 1 GM in DEXTROSE 5%-WATER 100 ML IVPB SCH (09:16)
[2024-10-27 10:48] LABS: ABSOLUTE IMMATURE GRANULOCYTES 0.13 x10^3/uL (0.0-0.031); BASOPHILS # 0.04 x10^3/uL (0.01-0.08); EOSINOPHIL % 0.4 % (0.8-7.0); EOSINOPHILS # 0.07 x10^3/uL (0.04-0.54); HEMATOCRIT 21.6 % (40.1-51.0); HEMOGLOBIN 6.8 g/dL (13.7-17.5); MCHC 31.5 g/dl (32.3-36.5); MEAN CELL VOLUME 86.1 fl (79.0-92.2); MEAN PLT VOLUME 9.3 fl (9.4-12.4); MONOCYTE # 0.92 x10^3/uL (0.30-0.82); MONOCYTE % 5.6 % (5.3-12.2); PLATELET COUNT 490 x10^3/uL (163-337); RDW 17.7 % (12.2-16.6)
[2024-10-27] MEDS: ACETAMINOPHEN 1000 MG/100 ML BAG IVPB PRN (11:58)
[2024-10-27] MEDS: ROSUVASTATIN CA 10 MG TABLET PO SCH (21:57)
[2024-10-27] MEDS: QUEtiapine FUMARATE 25 MG TABLET GT SCH (21:57)
[2024-10-28 12:37] LABS: BASOPHILS # 0.04 x10^3/uL (0.01-0.08); EOSINOPHIL % 0.6 % (0.8-7.0); EOSINOPHILS # 0.07 x10^3/uL (0.04-0.54); HEMATOCRIT 24.7 % (40.1-51.0); HEMOGLOBIN 8.2 g/dL (13.7-17.5); MCHC 33.2 g/dl (32.3-36.5); MEAN CELL VOLUME 83.2 fl (79.0-92.2); MEAN PLT VOLUME 9.1 fl (9.4-12.4); MONOCYTE # 0.73 x10^3/uL (0.30-0.82); MONOCYTE % 5.8 % (5.3-12.2); PLATELET COUNT 471 x10^3/uL (163-337); RDW 17.7 % (12.2-16.6)
[2024-10-28 12:57] LABS: POTASSIUM 3.8 mmol/L (3.5-5.1)
[2024-10-28 13:00] LABS: ALBUMIN 1.4 g/dl (3.4-5.0); CALCIUM 8.6 mg/dL (8.5-10.1)
[2024-10-28 13:01] LABS: BLOOD UREA NITROGEN 13.2 mg/dL (7-18); MAGNESIUM 1.4 mg/dL (1.8-2.4)
[2024-10-28 13:04] LABS: CREATININE 0.2 mg/dL (0.55-1.3); PHOSPHOROUS 1.7 mg/dL (2.5-4.9)
[2024-10-28 13:05] LABS: BILIRUBIN,TOTAL 0.4 mg/dL (0.2-1); TOT PROT 5.2 g/dl (6.4-8.2)
[2024-10-29 09:05] LABS: CALCIUM 9.3 mg/dL (8.5-10.1)
[2024-10-29 09:06] LABS: ALBUMIN 1.4 g/dl (3.4-5.0); BLOOD UREA NITROGEN 15.8 mg/dL (7-18)
[2024-10-29 09:10] LABS: CREATININE 0.3 mg/dL (0.55-1.3)
[2024-10-29 09:11] LABS: BILIRUBIN,TOTAL 0.3 mg/dL (0.2-1); TOT PROT 5.7 g/dl (6.4-8.2)
[2024-10-29] MEDS: MEROPENEM 1 GM in DEXTROSE 5%-WATER 100 ML IVPB SCH (10:12)
[2024-10-29] MEDS ORDERED: COLLAGENASE CLOSTRIDIUM HIST. 30 GRAMS TUBE TP SCH (11:15)
[2024-10-29 11:44] LABS: ABSOLUTE IMMATURE GRANULOCYTES 0.12 x10^3/uL (0.0-0.031); BASOPHILS # 0.05 x10^3/uL (0.01-0.08); EOSINOPHIL % 0.2 % (0.8-7.0); EOSINOPHILS # 0.03 x10^3/uL (0.04-0.54); HEMATOCRIT 29.1 % (40.1-51.0); HEMOGLOBIN 9.3 g/dL (13.7-17.5); MEAN CELL VOLUME 84.1 fl (79.0-92.2); MEAN PLT VOLUME 9.9 fl (9.4-12.4); MONOCYTE % 4.8 % (5.3-12.2); PLATELET COUNT 463 x10^3/uL (163-337); RDW 18.6 % (12.2-16.6)
[2024-10-29] MEDS: ACETAMINOPHEN 1000 MG/100 ML BAG IVPB PRN (17:41)
[2024-10-30 10:44] LABS: HEMATOCRIT 27.1 % (40.1-51.0); HEMOGLOBIN 8.7 g/dL (13.7-17.5); MCHC 32.1 g/dl (32.3-36.5); PLATELET COUNT 449 x10^3/uL (163-337); RDW 18.5 % (12.2-16.6)
[2024-10-30 13:09] LABS: POTASSIUM 3.7 mmol/L (3.5-5.1)
[2024-10-30 13:19] LABS: BLOOD UREA NITROGEN 14.6 mg/dL (7-18); PHOSPHOROUS 3.3 mg/dL (2.5-4.9)
[2024-10-30 13:20] LABS: ALBUMIN 1.4 g/dl (3.4-5.0); BILIRUBIN,TOTAL 0.4 mg/dL (0.2-1)
[2024-10-30 13:21] LABS: TOT PROT 5.5 g/dl (6.4-8.2)
[2024-10-30 13:22] LABS: CALCIUM 9.4 mg/dL (8.5-10.1); MAGNESIUM 1.5 mg/dL (1.8-2.4)
[2024-10-30 13:23] LABS: CREATININE 0.2 mg/dL (0.55-1.3)
[2024-10-30] MEDS ORDERED: PHYTONADIONE 10 MG/1 ML AMP ONE (16:29)
[2024-10-30] MEDS ORDERED: PANTOPRAZOLE SODIUM 40 MG VIAL IVPUSH ONE (16:45)
[2024-10-30 17:40] LABS: BASOPHILS # 0.03 x10^3/uL (0.01-0.08); EOSINOPHIL % 0.2 % (0.8-7.0); EOSINOPHILS # 0.03 x10^3/uL (0.04-0.54); HEMOGLOBIN 7.9 g/dL (13.7-17.5); MCHC 31.6 g/dl (32.3-36.5); MEAN CELL VOLUME 86.2 fl (79.0-92.2); MEAN PLT VOLUME 8.8 fl (9.4-12.4); MONOCYTE # 0.69 x10^3/uL (0.30-0.82); MONOCYTE % 4.5 % (5.3-12.2); PLATELET COUNT 383 x10^3/uL (163-337); RDW 17.6 % (12.2-16.6)
[2024-10-30 17:56] LABS: INR 1.51 (0.83-1.09); PROTHROMBIN TIME (PATIENT) 16.5 SEC (9.7-13.0)
[2024-10-30 17:58] LABS: ACTIVATED PTT 30.9 SECONDS (25.2-36.5)
[2024-10-30 18:18] LABS: LACTIC ACID 2.1 mmol/L (0.4-2.0)
[2024-10-30 18:21] LABS: POTASSIUM 3.7 mmol/L (3.5-5.1)
[2024-10-30 18:22] LABS: CALCIUM 8.5 mg/dL (8.5-10.1)
[2024-10-30 18:23] LABS: ALBUMIN 1.3 g/dl (3.4-5.0)
[2024-10-30 18:24] LABS: MAGNESIUM 1.5 mg/dL (1.8-2.4)
[2024-10-30 18:26] LABS: CREATININE 0.2 mg/dL (0.55-1.3)
[2024-10-30 18:27] LABS: PHOSPHOROUS 3.5 mg/dL (2.5-4.9)
[2024-10-30 18:28] LABS: BILIRUBIN,TOTAL 0.3 mg/dL (0.2-1); TOT PROT 4.8 g/dl (6.4-8.2)
[2024-10-30] MEDS: PROPOFOL 1,000,000 MCG/100 ML VIAL IVPB SCH (19:00)
[2024-10-30] MEDS: SODIUM CHLORIDE 1,000 ML IV STA ×2 (19:24→19:49)
[2024-10-30] MEDS: PANTOPRAZOLE SODIUM 40 MG VIAL IVPUSH ONE (19:24)
[2024-10-30] MEDS: NOREPINEPHRINE BITARTRATE/D5W 8 MG/250 ML BAG IVPB SCH (19:25)
[2024-10-30] MEDS: PROTAMINE SULFATE 50 MG/5 ML VIAL IVPUSH ONE (19:50)
[2024-10-30] MEDS: PROTAMINE SULFATE 50 MG/5 ML VIAL IVPUSH STA (20:06)
[2024-10-30] MEDS: SODIUM CHLORIDE 1,000 ML IV SCH (20:06)
[2024-10-30] MEDS: PANTOPRAZOLE SODIUM 80 MG in SODIUM CHLORIDE 100 ML IVPB SCH (20:28)
[2024-10-30] MEDS: MAGNESIUM 2GM/50ML STERILE WATER IVPB IVPB ONE (20:46)
[2024-10-30 21:10] LABS: EPI CELLS 24 /uL (0-25.1); HYALINE CASTS 0 /uL (0-3.1); URINE APPEARANCE CLEAR; URINE BACTERIA 19 /uL (0-1359); URINE BILIRUBIN NEGATIVE (NEGATIVE); URINE COLOR YELLOW; URINE GLUCOSE (UA) NEGATIVE (NEGATIVE); URINE KETONE TRACE (NEGATIVE); URINE LEUK ESTERASE NEGATIVE (NEGATIVE); URINE NITRITE NEGATIVE (NEGATIVE); URINE PROTEIN 1+ (NEGATIVE); URINE RBC 62 /uL (0-23.9)
[2024-10-30] MEDS: CALCIUM GLUCONATE 10% - 1,000 MG/10 ML VIAL IVPB ONE (21:48)
[2024-10-30] MEDS: FENTANYL NS IVPB 500 MCG/100 ML BAG IVPB SCH (21:48)
[2024-10-30] MEDS: MEROPENEM 1 GM in DEXTROSE 5%-WATER 100 ML IVPB SCH (21:51)
[2024-10-30 23:11] LABS: ABSOLUTE IMMATURE GRANULOCYTES 0.11 x10^3/uL (0.0-0.031); BASOPHILS # 0.05 x10^3/uL (0.01-0.08); EOSINOPHIL % 0.2 % (0.8-7.0); EOSINOPHILS # 0.04 x10^3/uL (0.04-0.54); HEMATOCRIT 27.3 % (40.1-51.0); MEAN CELL VOLUME 83.5 fl (79.0-92.2); MONOCYTE # 0.85 x10^3/uL (0.30-0.82); MONOCYTE % 4.7 % (5.3-12.2); PLATELET COUNT 360 x10^3/uL (163-337); RDW 16.3 % (12.2-16.6)
[2024-10-30 23:27] LABS: INR 1.33 (0.83-1.09); PROTHROMBIN TIME (PATIENT) 14.5 SEC (9.7-13.0)
[2024-10-30 23:29] LABS: ACTIVATED PTT 26.9 SECONDS (25.2-36.5)
[2024-10-31] MEDS ORDERED: DOPAMINE 400 MG/D5W - 400,000 MCG/250 ML INFUS.BAG IVPB ONE (01:15)
[2024-10-31] MEDS: DOPAMINE 400 MG/D5W - 400,000 MCG/250 ML INFUS.BAG IVPB SCH (01:15)
[2024-10-31] MEDS: LACTATED RINGERS SOLUTION 1,000 ML/1,000 ML INFUS.BAG IV ONE (03:00)
[2024-10-31 06:28] LABS: ABSOLUTE IMMATURE GRANULOCYTES 0.07 x10^3/uL (0.0-0.031); BASOPHILS # 0.03 x10^3/uL (0.01-0.08); EOSINOPHIL % 0.9 % (0.8-7.0); EOSINOPHILS # 0.13 x10^3/uL (0.04-0.54); HEMATOCRIT 23.1 % (40.1-51.0); HEMOGLOBIN 7.7 g/dL (13.7-17.5); MCHC 33.3 g/dl (32.3-36.5); MEAN CELL VOLUME 82.8 fl (79.0-92.2); MEAN PLT VOLUME 8.9 fl (9.4-12.4); MONOCYTE # 0.65 x10^3/uL (0.30-0.82); MONOCYTE % 4.7 % (5.3-12.2); PLATELET COUNT 341 x10^3/uL (163-337); RDW 16.7 % (12.2-16.6)
[2024-10-31 06:32] LABS: POTASSIUM 3.2 mmol/L (3.5-5.1)
[2024-10-31 06:43] LABS: CALCIUM 8.5 mg/dL (8.5-10.1)
[2024-10-31 06:44] LABS: ALBUMIN 1.4 g/dl (3.4-5.0); BLOOD UREA NITROGEN 17.6 mg/dL (7-18)
[2024-10-31 06:47] LABS: CREATININE 0.2 mg/dL (0.55-1.3); MAGNESIUM 1.9 mg/dL (1.8-2.4)
[2024-10-31 06:48] LABS: BILIRUBIN,TOTAL 0.6 mg/dL (0.2-1); TOT PROT 4.8 g/dl (6.4-8.2)
[2024-10-31 07:27] LABS: PHOSPHOROUS 2.8 mg/dL (2.5-4.9)
[2024-10-31] MEDS: KCL 20 MEQ PREMIX BAG 20 MEQ/100 ML INFUS.BAG IVPB SCH (08:48)
[2024-10-31] MEDS ORDERED: PANTOPRAZOLE SODIUM 40 MG VIAL IVPUSH SCH (10:00)
[2024-10-31] MEDS: PHYTONADIONE 10 MG/1 ML AMP IVPB ONE (10:55)
[2024-10-31] MEDS ORDERED: EPINEPHrine 1:10,000 (P-F SYR) 1 MG/10 ML DISP.SYRIN ONE (13:14)
[2024-10-31 13:49] VITALS: BMI 20.3
[2024-10-31 13:52] LABS: HEMATOCRIT 22.5 % (40.1-51.0); HEMOGLOBIN 7.6 g/dL (13.7-17.5); MCHC 33.8 g/dl (32.3-36.5); MEAN PLT VOLUME 8.6 fl (9.4-12.4); PLATELET COUNT 317 x10^3/uL (163-337); RDW 17.2 % (12.2-16.6)
[2024-10-31] MEDS ORDERED: SUCCINYLCHOLINE CHLORIDE 200 MG/10 ML VIAL ONE (14:25)
[2024-10-31 14:31] LABS: CALCIUM 8.4 mg/dL (8.5-10.1); POTASSIUM 3.9 mmol/L (3.5-5.1)
[2024-10-31 14:32] LABS: ALBUMIN 1.4 g/dl (3.4-5.0); BLOOD UREA NITROGEN 12.9 mg/dL (7-18)
[2024-10-31 14:35] LABS: CREATININE 0.2 mg/dL (0.55-1.3)
[2024-10-31 14:36] LABS: BILIRUBIN,TOTAL 0.5 mg/dL (0.2-1); TOT PROT 4.9 g/dl (6.4-8.2)
[2024-10-31] MEDS: ERYTHROMYCIN INJECTION - 250 MG in SODIUM CHLORIDE 100 ML IVPB ONE (15:20)
[2024-10-31] MEDS: ERYTHROMYCIN *INJECTION* 500 MG VIAL IVPB ONE (16:28)
[2024-10-31 20:22] LABS: HEMATOCRIT 24.2 % (40.1-51.0); MCHC 33.1 g/dl (32.3-36.5); MEAN CELL VOLUME 85.2 fl (79.0-92.2); MEAN PLT VOLUME 8.8 fl (9.4-12.4); PLATELET COUNT 331 x10^3/uL (163-337); RDW 17.6 % (12.2-16.6)
[2024-10-31] MEDS: ROSUVASTATIN CA 5 MG TABLET PO SCH (21:44)
[2024-11-01 06:36] LABS: HEMATOCRIT 25.1 % (40.1-51.0); HEMOGLOBIN 7.9 g/dL (13.7-17.5); MCHC 31.5 g/dl (32.3-36.5); MEAN CELL VOLUME 85.4 fl (79.0-92.2); MEAN PLT VOLUME 8.8 fl (9.4-12.4); PLATELET COUNT 339 x10^3/uL (163-337); RDW 17.5 % (12.2-16.6)
[2024-11-01 06:46] LABS: POTASSIUM 3.7 mmol/L (3.5-5.1)
[2024-11-01 06:54] LABS: CALCIUM 8.2 mg/dL (8.5-10.1)
[2024-11-01 06:55] LABS: ALBUMIN 1.4 g/dl (3.4-5.0); BLOOD UREA NITROGEN 7.5 mg/dL (7-18); MAGNESIUM 1.8 mg/dL (1.8-2.4)
[2024-11-01 06:58] LABS: CREATININE 0.2 mg/dL (0.55-1.3); PHOSPHOROUS 2.8 mg/dL (2.5-4.9)
[2024-11-01 06:59] LABS: BILIRUBIN,TOTAL 0.5 mg/dL (0.2-1); TOT PROT 5.3 g/dl (6.4-8.2)
[2024-11-01] MEDS: DEXTROSE 50%-WATER 25 GM/50 ML DISP.SYRIN IVPUSH ONE (18:20)
[2024-11-01] MEDS: DEXTROSE 5%-LACTATED RINGERS 1,000 ML IV SCH (18:57)
[2024-11-01] MEDS ORDERED: CEFTOLOZANE/TAZOBACTAM (ZERBAXA) 1.5 GM/11.4 ML VIAL IVPB SCH (20:30)
[2024-11-02 07:04] LABS: POTASSIUM 3.4 mmol/L (3.5-5.1)
[2024-11-02 07:12] LABS: BLOOD UREA NITROGEN 4.2 mg/dL (7-18); CREATININE 0.2 mg/dL (0.55-1.3)
[2024-11-02 07:13] LABS: BILIRUBIN,TOTAL 0.4 mg/dL (0.2-1); TOT PROT 4.9 g/dl (6.4-8.2)
[2024-11-02 07:14] LABS: CALCIUM 8.7 mg/dL (8.5-10.1)
[2024-11-02 07:15] LABS: ALBUMIN 1.3 g/dl (3.4-5.0); HEMATOCRIT 25.2 % (40.1-51.0); MAGNESIUM 1.5 mg/dL (1.8-2.4); MCHC 31.7 g/dl (32.3-36.5); MEAN CELL VOLUME 86.6 fl (79.0-92.2); MEAN PLT VOLUME 8.8 fl (9.4-12.4); PLATELET COUNT 327 x10^3/uL (163-337); RDW 17.3 % (12.2-16.6)
[2024-11-02] MEDS: MAGNESIUM SULFATE IN WATER 2 GM/50 ML IVPB IVPB ONE ×2 (08:45→11:29)
[2024-11-02] MEDS: KCL 20 MEQ PREMIX BAG 20 MEQ/100 ML INFUS.BAG IVPB SCH ×2 (08:45→14:04)
[2024-11-02] MEDS ORDERED: NICARDIPINE 25 MG in DEXTROSE 5%-WATER - 240 ML IVPB SCH (09:30)
[2024-11-02] MEDS: POTASSIUM PHOSPHATE 30 MM in DEXTROSE 5%-WATER - 250 ML IVPB ONE (10:45)
[2024-11-02] MEDS ORDERED: DEXTROSE 50%-WATER 25 GM/50 ML DISP.SYRIN IVPUSH PRN (11:52)
[2024-11-02] MEDS: CEFTAZIDIME/AVIBACTAM 2.5 GM in DEXTROSE 5%-WATER - 250 ML IVPB SCH (14:03)
[2024-11-02] MEDS: KCL 20 MEQ PREMIX BAG 20 MEQ/100 ML INFUS.BAG IVPB ONE (14:03)
[2024-11-03 07:22] LABS: HEMATOCRIT 25.4 % (40.1-51.0); HEMOGLOBIN 8.1 g/dL (13.7-17.5); MCHC 31.9 g/dl (32.3-36.5); MEAN CELL VOLUME 85.8 fl (79.0-92.2); MEAN PLT VOLUME 8.8 fl (9.4-12.4); PLATELET COUNT 360 x10^3/uL (163-337); RDW 16.8 % (12.2-16.6)
[2024-11-03 07:33] LABS: POTASSIUM 4.1 mmol/L (3.5-5.1)
[2024-11-03 07:55] LABS: CALCIUM 8.2 mg/dL (8.5-10.1)
[2024-11-03 07:56] LABS: ALBUMIN 1.3 g/dl (3.4-5.0); BLOOD UREA NITROGEN 3.9 mg/dL (7-18); MAGNESIUM 2.2 mg/dL (1.8-2.4)
[2024-11-03 07:59] LABS: CREATININE 0.2 mg/dL (0.55-1.3); PHOSPHOROUS 2.4 mg/dL (2.5-4.9)
[2024-11-03 08:00] LABS: BILIRUBIN,TOTAL 0.4 mg/dL (0.2-1); TOT PROT 5.2 g/dl (6.4-8.2)
[2024-11-04 07:32] LABS: ALBUMIN 1.2 g/dl (3.4-5.0); BILIRUBIN,TOTAL 0.6 mg/dL (0.2-1); CALCIUM 8.3 mg/dL (8.5-10.1); CREATININE 0.3 mg/dL (0.55-1.3); MAGNESIUM 1.9 mg/dL (1.8-2.4); PHOSPHOROUS 3.3 mg/dL (2.5-4.9); POTASSIUM 5.8 mmol/L (3.5-5.1); TOT PROT 5.8 g/dl (6.4-8.2)
[2024-11-04 09:50] LABS: POTASSIUM 3.6 mmol/L (3.5-5.1)
[2024-11-04 09:52] LABS: CALCIUM 8.5 mg/dL (8.5-10.1)
[2024-11-04 09:53] LABS: BLOOD UREA NITROGEN 4.6 mg/dL (7-18)
[2024-11-04 09:55] LABS: CREATININE 0.2 mg/dL (0.55-1.3)
[2024-11-04 11:52] LABS: ABSOLUTE IMMATURE GRANULOCYTES 0.12 x10^3/uL (0.0-0.031); BASOPHILS # 0.04 x10^3/uL (0.01-0.08); EOSINOPHIL % 0.2 % (0.8-7.0); EOSINOPHILS # 0.04 x10^3/uL (0.04-0.54); HEMATOCRIT 27.7 % (40.1-51.0); HEMOGLOBIN 8.8 g/dL (13.7-17.5); MCHC 31.8 g/dl (32.3-36.5); MEAN CELL VOLUME 85.5 fl (79.0-92.2); MEAN PLT VOLUME 8.9 fl (9.4-12.4); MONOCYTE # 0.75 x10^3/uL (0.30-0.82); MONOCYTE % 4.6 % (5.3-12.2); PLATELET COUNT 349 x10^3/uL (163-337); RDW 16.2 % (12.2-16.6)
[2024-11-04] MEDS: MAGNESIUM 1GM/D5W - 1 GM/100 ML IVPB IVPB ONE (13:11)
[2024-11-04] MEDS: KCL 10 MEQ IVPB 10 MEQ/100 ML INFUS.BAG IVPB SCH (14:00)
[2024-11-05 07:09] LABS: POTASSIUM 3.8 mmol/L (3.5-5.1)
[2024-11-05 07:10] LABS: HEMOGLOBIN 9.5 g/dL (13.7-17.5); RDW 16.4 % (12.2-16.6)
[2024-11-05 07:11] LABS: HEMATOCRIT 30.6 % (40.1-51.0); MEAN CELL VOLUME 86.9 fl (79.0-92.2); MEAN PLT VOLUME 9.3 fl (9.4-12.4); PLATELET COUNT 397 x10^3/uL (163-337)
[2024-11-05 07:20] LABS: ALBUMIN 1.4 g/dl (3.4-5.0); BLOOD UREA NITROGEN 6.9 mg/dL (7-18); CALCIUM 8.3 mg/dL (8.5-10.1)
[2024-11-05 07:23] LABS: CREATININE 0.2 mg/dL (0.55-1.3)
[2024-11-05 07:24] LABS: BILIRUBIN,TOTAL 0.4 mg/dL (0.2-1)
[2024-11-05 07:25] LABS: TOT PROT 5.5 g/dl (6.4-8.2)
[2024-11-05] MEDS: PANTOPRAZOLE SODIUM 40 MG VIAL IVPUSH SCH (10:53)
[2024-11-05] MEDS: MIDODRINE HCL 5 MG TABLET PO ONE (10:53)
[2024-11-05] MEDS: MIDODRINE HCL 5 MG TABLET PO SCH (18:07)
[2024-11-06 07:12] LABS: ABSOLUTE IMMATURE GRANULOCYTES 0.14 x10^3/uL (0.0-0.031); BASOPHILS # 0.04 x10^3/uL (0.01-0.08); EOSINOPHIL % 0.4 % (0.8-7.0); EOSINOPHILS # 0.06 x10^3/uL (0.04-0.54); HEMATOCRIT 25.8 % (40.1-51.0); HEMOGLOBIN 8.2 g/dL (13.7-17.5); MCHC 31.8 g/dl (32.3-36.5); MEAN CELL VOLUME 85.7 fl (79.0-92.2); MEAN PLT VOLUME 9.2 fl (9.4-12.4); MONOCYTE % 4.6 % (5.3-12.2); PLATELET COUNT 383 x10^3/uL (163-337); RDW 16.1 % (12.2-16.6)
[2024-11-06 07:26] LABS: ALBUMIN 1.3 g/dl (3.4-5.0); BLOOD UREA NITROGEN 6.4 mg/dL (7-18); CALCIUM 8.6 mg/dL (8.5-10.1)
[2024-11-06 07:29] LABS: CREATININE 0.2 mg/dL (0.55-1.3); MAGNESIUM 1.7 mg/dL (1.8-2.4); PHOSPHOROUS 3.1 mg/dL (2.5-4.9)
[2024-11-06 07:30] LABS: BILIRUBIN,TOTAL 0.4 mg/dL (0.2-1)
[2024-11-06 07:31] LABS: TOT PROT 5.3 g/dl (6.4-8.2)
[2024-11-06] MEDS: KCL 10 MEQ IVPB 10 MEQ/100 ML INFUS.BAG IVPB SCH (07:47)
[2024-11-06] MEDS: MAGNESIUM 1GM/D5W - 1 GM/100 ML IVPB IVPB ONE (07:47)
[2024-11-06] MEDS: MIDODRINE HCL 5 MG TABLET PO SCH ×2 (13:16→18:42)
[2024-11-06 15:22] LABS: HEMATOCRIT 29.1 % (40.1-51.0); HEMOGLOBIN 9.2 g/dL (13.7-17.5); MCHC 31.6 g/dl (32.3-36.5); MEAN CELL VOLUME 88.7 fl (79.0-92.2); PLATELET COUNT 388 x10^3/uL (163-337); RDW 16.2 % (12.2-16.6)
[2024-11-06] MEDS: ALBUTEROL SO4 2.5/IPRATROPIUM 0.5 INH SOL 3 ML VIAL.NEB. NEB SCH (17:17)
[2024-11-06] MEDS: CEFTAZIDIME/AVIBACTAM 2.5 GM in DEXTROSE 5%-WATER - 250 ML IVPB SCH (18:37)
[2024-11-06] MEDS: ROSUVASTATIN CA 5 MG TABLET PO SCH (21:31)
[2024-11-06] MEDS: PANTOPRAZOLE SODIUM 40 MG VIAL IVPUSH SCH (21:31)
[2024-11-07 08:55] LABS: HEMOGLOBIN 7.9 g/dL (13.7-17.5); MCHC 31.6 g/dl (32.3-36.5); MEAN CELL VOLUME 87.4 fl (79.0-92.2); MEAN PLT VOLUME 9.6 fl (9.4-12.4); PLATELET COUNT 378 x10^3/uL (163-337); RDW 16.3 % (12.2-16.6)
[2024-11-07 09:25] LABS: POTASSIUM 3.2 mmol/L (3.5-5.1)
[2024-11-07] MEDS ORDERED: COLLAGENASE CLOSTRIDIUM HIST. 30 GRAMS TUBE TP SCH (10:00)
[2024-11-07 10:24] LABS: ALBUMIN 1.4 g/dl (3.4-5.0)
[2024-11-07 10:25] LABS: BLOOD UREA NITROGEN 11.6 mg/dL (7-18); CALCIUM 8.3 mg/dL (8.5-10.1); MAGNESIUM 1.8 mg/dL (1.8-2.4)
[2024-11-07 10:28] LABS: BILIRUBIN,TOTAL 0.4 mg/dL (0.2-1); CREATININE 0.3 mg/dL (0.55-1.3); PHOSPHOROUS 2.2 mg/dL (2.5-4.9); TOT PROT 5.5 g/dl (6.4-8.2)
[2024-11-07] MEDS: MIDODRINE HCL 5 MG TABLET PEG SCH (11:30)
[2024-11-07] MEDS: POTASSIUM CHLORIDE ORAL LIQUID 20 MEQ/15 ML PEG ONE (12:11)
[2024-11-07] MEDS: KCL 10 MEQ IVPB 10 MEQ/100 ML INFUS.BAG IVPB SCH (14:22)
[2024-11-07] MEDS: MIDODRINE HCL 2.5 MG TABLET PEG SCH (14:53)
[2024-11-07] MEDS: ROSUVASTATIN CA 5 MG TABLET NR SCH (22:07)
[2024-11-08 08:37] LABS: HEMATOCRIT 25.8 % (40.1-51.0); MEAN CELL VOLUME 88.1 fl (79.0-92.2); MEAN PLT VOLUME 9.7 fl (9.4-12.4); PLATELET COUNT 395 x10^3/uL (163-337); RDW 16.5 % (12.2-16.6)
[2024-11-08 09:00] LABS: POTASSIUM 3.4 mmol/L (3.5-5.1)
[2024-11-08 09:08] LABS: CALCIUM 8.7 mg/dL (8.5-10.1)
[2024-11-08 09:09] LABS: ALBUMIN 1.4 g/dl (3.4-5.0); BLOOD UREA NITROGEN 12.3 mg/dL (7-18); MAGNESIUM 1.7 mg/dL (1.8-2.4)
[2024-11-08 09:12] LABS: CREATININE 0.2 mg/dL (0.55-1.3)
[2024-11-08 09:13] LABS: BILIRUBIN,TOTAL 0.4 mg/dL (0.2-1); TOT PROT 5.8 g/dl (6.4-8.2)
[2024-11-08] MEDS: POTASSIUM CHLORIDE ORAL LIQUID 20 MEQ/15 ML GT ONE (10:44)
[2024-11-08] MEDS: MULTIVIT-MINERALS ORAL LIQUID GT SCH (10:45)
[2024-11-08] MEDS: ASCORBIC ACID 500 MG/5 ML UNIT DOSE CUP GT SCH (10:46)
[2024-11-08] MEDS: AMINO ACIDS/PROTEIN HYDROLYS 30 ML LIQUID.PKT GT SCH (10:47)
[2024-11-08] MEDS: POTASSIUM CHLORIDE ORAL LIQUID 20 MEQ/15 ML PO ONE (10:51)
[2024-11-08] MEDS: MAGNESIUM 2GM/50ML STERILE WATER IVPB IVPB ONE (12:27)
[2024-11-08] MEDS: POTASSIUM PHOSPHATE 15 MM in SODIUM CHLORIDE 250 ML IVPB ONE (14:49)
[2024-11-08] MEDS: ACETAMINOPHEN 650 MG/20.3 ML ORAL SOLUTION (CUPS) GT SCH (17:50)
[2024-11-09 08:06] LABS: ABSOLUTE IMMATURE GRANULOCYTES 0.09 x10^3/uL (0.0-0.031); BASOPHILS # 0.05 x10^3/uL (0.01-0.08); EOSINOPHILS # 0.22 x10^3/uL (0.04-0.54); HEMATOCRIT 21.7 % (40.1-51.0); HEMOGLOBIN 6.7 g/dL (13.7-17.5); MCHC 30.9 g/dl (32.3-36.5); MEAN CELL VOLUME 88.9 fl (79.0-92.2); MEAN PLT VOLUME 9.4 fl (9.4-12.4); MONOCYTE # 0.94 x10^3/uL (0.30-0.82); MONOCYTE % 8.6 % (5.3-12.2); PLATELET COUNT 372 x10^3/uL (163-337); RDW 16.7 % (12.2-16.6)
[2024-11-09 08:29] LABS: POTASSIUM 3.7 mmol/L (3.5-5.1)
[2024-11-09 08:44] LABS: ALBUMIN 1.3 g/dl (3.4-5.0); CALCIUM 8.3 mg/dL (8.5-10.1)
[2024-11-09 08:45] LABS: BLOOD UREA NITROGEN 14.4 mg/dL (7-18); MAGNESIUM 1.8 mg/dL (1.8-2.4)
[2024-11-09 08:49] LABS: CREATININE 0.2 mg/dL (0.55-1.3)
[2024-11-09 08:50] LABS: BILIRUBIN,TOTAL 0.3 mg/dL (0.2-1)
[2024-11-09 08:54] LABS: TOT PROT 5.2 g/dl (6.4-8.2)
[2024-11-10 07:55] LABS: ABSOLUTE IMMATURE GRANULOCYTES 0.07 x10^3/uL (0.0-0.031); BASOPHILS # 0.05 x10^3/uL (0.01-0.08); EOSINOPHIL % 2.1 % (0.8-7.0); EOSINOPHILS # 0.19 x10^3/uL (0.04-0.54); HEMATOCRIT 27.5 % (40.1-51.0); HEMOGLOBIN 8.9 g/dL (13.7-17.5); MCHC 32.4 g/dl (32.3-36.5); MEAN CELL VOLUME 88.1 fl (79.0-92.2); MEAN PLT VOLUME 8.9 fl (9.4-12.4); MONOCYTE # 0.96 x10^3/uL (0.30-0.82); MONOCYTE % 10.7 % (5.3-12.2); PLATELET COUNT 363 x10^3/uL (163-337)
[2024-11-10 08:16] LABS: POTASSIUM 3.8 mmol/L (3.5-5.1)
[2024-11-10 08:19] LABS: ALBUMIN 1.3 g/dl (3.4-5.0); BLOOD UREA NITROGEN 15.6 mg/dL (7-18); CALCIUM 8.7 mg/dL (8.5-10.1); MAGNESIUM 1.7 mg/dL (1.8-2.4)
[2024-11-10 08:23] LABS: CREATININE 0.2 mg/dL (0.55-1.3)
[2024-11-10 08:24] LABS: BILIRUBIN,TOTAL 0.4 mg/dL (0.2-1); TOT PROT 5.5 g/dl (6.4-8.2)
[2024-11-10] MEDS ORDERED: MAGNESIUM SULF 50% (8.12 MEQ/2 ML-1 GM VIAL) IVPB ONE (08:45)
[2024-11-10] MEDS: MAGNESIUM SULFATE IN WATER 2 GM/50 ML IVPB IVPB ONE (09:28)
[2024-11-11] MEDS: KCL 10 MEQ IVPB 10 MEQ/100 ML INFUS.BAG IVPB SCH (04:06)
[2024-11-11 07:59] LABS: ABSOLUTE IMMATURE GRANULOCYTES 0.08 x10^3/uL (0.0-0.031); BASOPHILS # 0.09 x10^3/uL (0.01-0.08); EOSINOPHIL % 1.8 % (0.8-7.0); EOSINOPHILS # 0.18 x10^3/uL (0.04-0.54); HEMOGLOBIN 9.1 g/dL (13.7-17.5); MCHC 31.4 g/dl (32.3-36.5); MEAN CELL VOLUME 88.7 fl (79.0-92.2); MEAN PLT VOLUME 8.8 fl (9.4-12.4); MONOCYTE # 1.18 x10^3/uL (0.30-0.82); MONOCYTE % 12.1 % (5.3-12.2); PLATELET COUNT 396 x10^3/uL (163-337)
[2024-11-11 08:13] LABS: POTASSIUM 4.6 mmol/L (3.5-5.1)
[2024-11-11 08:16] LABS: CALCIUM 8.6 mg/dL (8.5-10.1)
[2024-11-11 08:17] LABS: ALBUMIN 1.4 g/dl (3.4-5.0); BLOOD UREA NITROGEN 16.8 mg/dL (7-18); MAGNESIUM 1.8 mg/dL (1.8-2.4)
[2024-11-11 08:22] LABS: BILIRUBIN,TOTAL 0.3 mg/dL (0.2-1); CREATININE 0.2 mg/dL (0.55-1.3)
[2024-11-11 08:23] LABS: TOT PROT 5.6 g/dl (6.4-8.2)
[2024-11-12 08:48] LABS: BASOPHILS # 0.08 x10^3/uL (0.01-0.08); EOSINOPHIL % 1.2 % (0.8-7.0); EOSINOPHILS # 0.15 x10^3/uL (0.04-0.54); HEMOGLOBIN 9.7 g/dL (13.7-17.5); MCHC 30.3 g/dl (32.3-36.5); MEAN CELL VOLUME 90.9 fl (79.0-92.2); MEAN PLT VOLUME 10.3 fl (9.4-12.4); MONOCYTE # 0.94 x10^3/uL (0.30-0.82); MONOCYTE % 7.7 % (5.3-12.2); PLATELET COUNT 368 x10^3/uL (163-337); RDW 16.6 % (12.2-16.6)
[2024-11-12 09:12] LABS: POTASSIUM 4.3 mmol/L (3.5-5.1)
[2024-11-12 09:15] LABS: ALBUMIN 1.5 g/dl (3.4-5.0); BLOOD UREA NITROGEN 18.4 mg/dL (7-18); CALCIUM 8.5 mg/dL (8.5-10.1); MAGNESIUM 1.8 mg/dL (1.8-2.4)
[2024-11-12 09:19] LABS: CREATININE 0.2 mg/dL (0.55-1.3)
[2024-11-12 09:20] LABS: BILIRUBIN,TOTAL 0.2 mg/dL (0.2-1); TOT PROT 6.1 g/dl (6.4-8.2)
[2024-11-12 15:07] VITALS: BP 126/50; PULSE 89; RESP 20; TEMP 98.4
== END 2024-11-12 18:44 | DRG 871 ==
LOC: JER 00:44 → JERBED 03:39 → J4S 07:55 → JICU 10-30 17:08 → J8W 11-06 15:33
PROVIDERS: ADMIT Internal Medicine; ATTEND Nurse Practitioner Family
PROC: 30233N1 Transfusion of Nonautologous Red Blood Cells into Peripheral Vein, Percutaneous Approach (ICD-10-PCS; 2024-10-27)
PROC: 5A1945Z Respiratory Ventilation, 24-96 Consecutive Hours (ICD-10-PCS; principal; 2024-10-30)
PROC: 0BH17EZ Insertion of Endotracheal Airway into Trachea, Via Natural or Artificial Opening (ICD-10-PCS; 2024-10-30)
PROC: 06HM33Z Insertion of Infusion Device into Right Femoral Vein, Percutaneous Approach (ICD-10-PCS; 2024-10-30)
PROC: B54BZZA Ultrasonography of Right Lower Extremity Veins, Guidance (ICD-10-PCS; 2024-10-30)
PROC: 30233L1 Transfusion of Nonautologous Fresh Plasma into Peripheral Vein, Percutaneous Approach (ICD-10-PCS; 2024-10-30)
PROC: 30233K1 Transfusion of Nonautologous Frozen Plasma into Peripheral Vein, Percutaneous Approach (ICD-10-PCS; 2024-10-30)
PROC: 0W3P8ZZ Control Bleeding in Gastrointestinal Tract, Via Natural or Artificial Opening Endoscopic (ICD-10-PCS; 2024-10-31)
PROC: 3E0G8GC Introduction of Other Therapeutic Substance into Upper GI, Via Natural or Artificial Opening Endoscopic (ICD-10-PCS; 2024-10-31)
PROC: 05HM33Z Insertion of Infusion Device into Right Internal Jugular Vein, Percutaneous Approach (ICD-10-PCS; 2024-10-31)
PROC: B543ZZA Ultrasonography of Right Jugular Veins, Guidance (ICD-10-PCS; 2024-10-31)
DX: A41.9 Sepsis, unspecified organism (principal); E43 Unspecified severe protein-calorie malnutrition; L89.103 Pressure ulcer of unspecified part of back, stage 3; L89.214 Pressure ulcer of right hip, stage 4; J18.9 Pneumonia, unspecified organism; G93.41 Metabolic encephalopathy; R65.21 Severe sepsis with septic shock; R57.1 Hypovolemic shock; K31.82 Dieulafoy lesion (hemorrhagic) of stomach and duodenum; J96.01 Acute respiratory failure with hypoxia; R64 Cachexia; E87.1 Hypo-osmolality and hyponatremia; K92.2 Gastrointestinal hemorrhage, unspecified; D62 Acute posthemorrhagic anemia; I44.2 Atrioventricular block, complete; F01.50 Vascular dementia, unspecified severity, without behavioral disturbance, psychotic disturbance, mood disturbance, and anxiety; I25.10 Atherosclerotic heart disease of native coronary artery without angina pectoris; Z93.1 Gastrostomy status; Z95.1 Presence of aortocoronary bypass graft; L89.319 Pressure ulcer of right buttock, unspecified stage; L89.029 Pressure ulcer of left elbow, unspecified stage; L89.152 Pressure ulcer of sacral region, stage 2; L89.520 Pressure ulcer of left ankle, unstageable; L89.510 Pressure ulcer of right ankle, unstageable; D64.9 Anemia, unspecified; I10 Essential (primary) hypertension; E78.5 Hyperlipidemia, unspecified; Z68.21 Body mass index [BMI] 21.0-21.9, adult; L89.619 Pressure ulcer of right heel, unspecified stage; K59.09 Other constipation; L89.120 Pressure ulcer of left upper back, unstageable; L89.020 Pressure ulcer of left elbow, unstageable; L89.610 Pressure ulcer of right heel, unstageable; L89.512 Pressure ulcer of right ankle, stage 2; L89.890 Pressure ulcer of other site, unstageable; L89.320 Pressure ulcer of left buttock, unstageable; D75.839 Thrombocytosis, unspecified
CPT/HCPCS: 0241U-QW; 31500; 36415; 36430; 71045-TC-FY; 80048; 80053; 81003; 82272; 82728; 82803; 82962; 83540; 83550; 83605; 83690; 83735; 84100; 84484; 85025; 85027; 85384; 85610; 85651; 85730; 86140; 86850; 86900; 86901; 86922; 87040; 87070; 87081; 87086; 87184; 87186; 87205; 87481; 87635; 93005; 93010; 93306-TC; 94002; 94640; 99291; J2997; J7168; P9017; P9058

== ENCOUNTER 2024-11-13 08:43 | Inpatient (IN) | payer OTHER ==
[2024-11-13] MEDS ORDERED: ACETAMINOPHEN INJECTION 100 ML ONE (09:14)
[2024-11-13 09:29] LABS: HEMATOCRIT 29.8 % (40.1-51.0); HEMOGLOBIN 9.3 g/dL (13.7-17.5); MCHC 31.2 g/dl (32.3-36.5); MEAN CELL VOLUME 90.3 fl (79.0-92.2); MEAN PLT VOLUME 9.7 fl (9.4-12.4); PLATELET COUNT 438 x10^3/uL (163-337); RDW 17.1 % (12.2-16.6); VENOUS BASE EXCESS 4.5 mmol/L (-2-2); VENOUS O2 SATURATION 76.3 % (70-80); VENOUS PCO2 42.2 mmHg (38-52); VENOUS PH 7.453 (7.310-7.410)
[2024-11-13] MEDS: SODIUM CHLORIDE 0.9% 1000 ML INFUS.BAG IV STA (09:30)
[2024-11-13] MEDS: ACETAMINOPHEN 1000 MG/100 ML BAG IVPB ONE (09:30)
[2024-11-13] MEDS ORDERED: PIPERACILLIN/TAZOB 3.375 GM 3.375 GM/50 ML BAG IVPB ONE (09:31)
[2024-11-13] MEDS ORDERED: VANCOMYCIN 1 GM PREMIX (F) 1 GM/200 ML BAG ONE (09:31)
[2024-11-13] MEDS: VANCOMYCIN 1,000 MG in DEXTROSE 5%-WATER - 250 ML IVPB ONE (09:40)
[2024-11-13] MEDS: PIPERACILLIN/TAZOB 3.375 GM 3.375 GM in DEXTROSE 5%-WATER - 50 ML IVPB ONE (09:40)
[2024-11-13 10:03] LABS: INR 1.52 (0.83-1.09); PROTHROMBIN TIME (PATIENT) 16.6 SEC (9.7-13.0)
[2024-11-13 10:06] LABS: ACTIVATED PTT 29.3 SECONDS (25.2-36.5)
[2024-11-13 10:07] LABS: POTASSIUM 4.7 mmol/L (3.5-5.1)
[2024-11-13 10:09] LABS: ALBUMIN 1.6 g/dl (3.4-5.0); BLOOD UREA NITROGEN 23.9 mg/dL (7-18)
[2024-11-13 10:12] LABS: CREATININE 0.2 mg/dL (0.55-1.3)
[2024-11-13 10:14] LABS: BILIRUBIN,TOTAL 0.2 mg/dL (0.2-1); TOT PROT 6.4 g/dl (6.4-8.2)
[2024-11-13] MEDS ORDERED: ALBUTEROL SO4 2.5/IPRATROPIUM 0.5 INH SOL 3 ML VIAL.NEB. NEB ONE (11:12)
[2024-11-13] MEDS: ALBUTEROL SO4 2.5/IPRATROPIUM 0.5 INH SOL 3 ML VIAL.NEB. NEB ONE (11:20)
[2024-11-13 13:38] LABS: EPI CELLS 13 /uL (0-25.1); HYALINE CASTS 0 /uL (0-3.1); URINE APPEARANCE CLEAR; URINE BACTERIA 15 /uL (0-1359); URINE BILIRUBIN NEGATIVE (NEGATIVE); URINE COLOR YELLOW; URINE GLUCOSE (UA) NEGATIVE (NEGATIVE); URINE KETONE NEGATIVE (NEGATIVE); URINE LEUK ESTERASE NEGATIVE (NEGATIVE); URINE NITRITE NEGATIVE (NEGATIVE); URINE PROTEIN 2+ (NEGATIVE); URINE RBC 28 /uL (0-23.9); URINE WBC 18 /uL (0-25.8)
[2024-11-13] MEDS ORDERED: PANTOPRAZOLE SODIUM 40 MG VIAL ONE (15:29)
[2024-11-13] MEDS: PANTOPRAZOLE SODIUM 40 MG VIAL IVPUSH SCH (15:37)
[2024-11-13] MEDS ORDERED: ALBUTEROL SO4 2.5/IPRATROPIUM 0.5 INH SOL 3 ML VIAL.NEB. NEB PRN (18:00)
[2024-11-13 20:21] VITALS: BMI 20.7
[2024-11-14] MEDS: CEFTAZIDIME/AVIBACTAM 2.5 GM in DEXTROSE 5%-WATER - 250 ML IVPB SCH (00:01)
[2024-11-14] MEDS: LACTATED RINGERS SOLUTION 1,000 ML/1,000 ML INFUS.BAG IV SCH (00:01)
[2024-11-14] MEDS: ACETAMINOPHEN 1000 MG/100 ML BAG IVPB ONE (00:24)
[2024-11-14 00:25] LABS: HEMATOCRIT 27.3 % (40.1-51.0); HEMOGLOBIN 8.6 g/dL (13.7-17.5); MCHC 31.5 g/dl (32.3-36.5); MEAN CELL VOLUME 90.4 fl (79.0-92.2); MEAN PLT VOLUME 9.2 fl (9.4-12.4); PLATELET COUNT 401 x10^3/uL (163-337)
[2024-11-14 07:16] LABS: POTASSIUM 3.6 mmol/L (3.5-5.1)
[2024-11-14 07:20] LABS: CALCIUM 8.7 mg/dL (8.5-10.1)
[2024-11-14 07:21] LABS: ALBUMIN 1.3 g/dl (3.4-5.0); BLOOD UREA NITROGEN 15.6 mg/dL (7-18)
[2024-11-14 07:24] LABS: CREATININE 0.2 mg/dL (0.55-1.3); PHOSPHOROUS 2.7 mg/dL (2.5-4.9)
[2024-11-14 07:25] LABS: BILIRUBIN,TOTAL 0.5 mg/dL (0.2-1); TOT PROT 5.4 g/dl (6.4-8.2)
[2024-11-14 07:28] LABS: HEMATOCRIT 26.6 % (40.1-51.0); HEMOGLOBIN 8.4 g/dL (13.7-17.5); MCHC 31.6 g/dl (32.3-36.5); MEAN CELL VOLUME 90.2 fl (79.0-92.2); MEAN PLT VOLUME 9.2 fl (9.4-12.4); PLATELET COUNT 374 x10^3/uL (163-337)
[2024-11-14 07:56] LABS: MAGNESIUM 1.8 mg/dL (1.8-2.4)
[2024-11-15] MEDS: PANTOPRAZOLE SODIUM 40 MG VIAL IVPUSH SCH (09:25)
[2024-11-15] MEDS: COLLAGENASE CLOSTRIDIUM HIST. 30 GRAMS TUBE TP SCH (15:33)
[2024-11-15] MEDS ORDERED: QUEtiapine FUMARATE 25 MG TABLET GT SCH (22:00)
[2024-11-15] MEDS ORDERED: METOPROLOL TARTRATE 50 MG TABLET (FP) PEG SCH (22:00)
[2024-11-15] MEDS ORDERED: ROSUVASTATIN CA 5 MG TABLET PO SCH (22:00)
[2024-11-16 07:12] LABS: HEMATOCRIT 26.8 % (40.1-51.0); HEMOGLOBIN 8.7 g/dL (13.7-17.5); MCHC 32.5 g/dl (32.3-36.5); MEAN CELL VOLUME 88.7 fl (79.0-92.2); MEAN PLT VOLUME 9.6 fl (9.4-12.4); PLATELET COUNT 390 x10^3/uL (163-337); RDW 16.8 % (12.2-16.6)
[2024-11-16 07:15] LABS: POTASSIUM 3.3 mmol/L (3.5-5.1)
[2024-11-16 07:19] LABS: CALCIUM 8.2 mg/dL (8.5-10.1)
[2024-11-16 07:20] LABS: BLOOD UREA NITROGEN 10.8 mg/dL (7-18)
[2024-11-16 07:24] LABS: CREATININE 0.2 mg/dL (0.55-1.3)
[2024-11-16] MEDS: KCL 10 MEQ IVPB 10 MEQ/100 ML INFUS.BAG IVPB SCH (08:07)
[2024-11-16] MEDS: ACETAMINOPHEN 650 MG/20.3 ML ORAL SOLUTION (CUPS) GT SCH (10:14)
[2024-11-16] MEDS: amLODIPine BESYLATE 5 MG TABLET (FP) GT SCH (10:15)
[2024-11-16] MEDS: ZINC SULFATE 220 MG CAPSULE (FP) GT SCH (10:15)
[2024-11-16] MEDS ORDERED: oxyCODONE HCL 5 MG TABLET GT PRN (10:48)
[2024-11-16] MEDS ORDERED: ACETAMINOPHEN 1000 MG/100 ML BAG IVPB SCH (11:00)
[2024-11-16] MEDS ORDERED: oxyCODONE HCL 5 MG TABLET PO SCH (11:00)
[2024-11-16] MEDS: ASCORBIC ACID 500 MG/5 ML UNIT DOSE CUP GT SCH ×2 (11:26→11:42)
[2024-11-16] MEDS: oxyCODONE HCL 5 MG TABLET GT SCH (11:42)
[2024-11-16] MEDS: ACETAMINOPHEN 1000 MG/100 ML BAG IVPB SCH (16:17)
[2024-11-16] MEDS: ACETAMINOPHEN 325 MG TABLET (FP) PO SCH (18:30)
[2024-11-17 08:13] LABS: MEAN CELL VOLUME 89.1 fl (79.0-92.2)
[2024-11-17 08:15] LABS: ABSOLUTE IMMATURE GRANULOCYTES 0.09 x10^3/uL (0.0-0.031); BASOPHILS # 0.05 x10^3/uL (0.01-0.08); EOSINOPHIL % 3.8 % (0.8-7.0); EOSINOPHILS # 0.49 x10^3/uL (0.04-0.54); HEMATOCRIT 29.4 % (40.1-51.0); HEMOGLOBIN 9.2 g/dL (13.7-17.5); MCHC 31.3 g/dl (32.3-36.5); MEAN PLT VOLUME 9.4 fl (9.4-12.4); MONOCYTE # 0.51 x10^3/uL (0.30-0.82); PLATELET COUNT 383 x10^3/uL (163-337); RDW 16.7 % (12.2-16.6)
[2024-11-17 08:32] LABS: POTASSIUM 3.6 mmol/L (3.5-5.1)
[2024-11-17 08:35] LABS: ALBUMIN 1.2 g/dl (3.4-5.0); BLOOD UREA NITROGEN 11.5 mg/dL (7-18); CALCIUM 8.2 mg/dL (8.5-10.1)
[2024-11-17 08:38] LABS: CREATININE 0.2 mg/dL (0.55-1.3)
[2024-11-17 08:40] LABS: BILIRUBIN,TOTAL 0.3 mg/dL (0.2-1)
[2024-11-17] MEDS: FERROUS SO4 300 MG/5 ML ORAL SOLN UNIT DOSE CUPS GT SCH (10:41)
[2024-11-17] MEDS: MULTIVITAMINS (DAILY MVI) TABLET (FP) PO SCH (10:42)
[2024-11-17] MEDS: oxyCODONE HCL 5 MG TABLET GT SCH (21:59)
[2024-11-18] MEDS: ALBUTEROL SO4 0.083% IH SOL 2.5 MG/3 ML VIAL.NEB. NEB SCH (07:20)
[2024-11-18] MEDS: ACETYLCYSTEINE 20% 200MG/ML 30 ML VIAL *FOR ORAL / INH USE ONLY NEB SCH (07:20)
[2024-11-18 07:59] LABS: BASOPHILS # 0.09 x10^3/uL (0.01-0.08); EOSINOPHIL % 4.3 % (0.8-7.0); EOSINOPHILS # 0.67 x10^3/uL (0.04-0.54); MCHC 30.8 g/dl (32.3-36.5); MEAN CELL VOLUME 89.7 fl (79.0-92.2); MEAN PLT VOLUME 9.5 fl (9.4-12.4); MONOCYTE # 0.97 x10^3/uL (0.30-0.82); MONOCYTE % 6.2 % (5.3-12.2); PLATELET COUNT 383 x10^3/uL (163-337); RDW 16.8 % (12.2-16.6)
[2024-11-18 08:11] LABS: POTASSIUM 3.3 mmol/L (3.5-5.1)
[2024-11-18 08:12] LABS: CALCIUM 8.3 mg/dL (8.5-10.1)
[2024-11-18 08:13] LABS: BLOOD UREA NITROGEN 14.1 mg/dL (7-18)
[2024-11-18 08:16] LABS: CREATININE 0.2 mg/dL (0.55-1.3)
[2024-11-18] MEDS ORDERED: SCOPOLAMINE HYDROBROMIDE 1 PATCH PATCH.TD72 TD SCH (09:00)
[2024-11-18] MEDS: ACETYLCYSTEINE 20% 200MG/ML 4 ML VIAL *FOR ORAL / INH USE ONLY NEB SCH (15:19)
[2024-11-18] MEDS: POTASSIUM CHLORIDE ORAL LIQUID 20 MEQ/15 ML GT SCH (22:29)
[2024-11-19 10:35] LABS: ABSOLUTE IMMATURE GRANULOCYTES 0.13 x10^3/uL (0.0-0.031); BASOPHILS # 0.07 x10^3/uL (0.01-0.08); EOSINOPHIL % 5.6 % (0.8-7.0); EOSINOPHILS # 0.72 x10^3/uL (0.04-0.54); HEMATOCRIT 26.7 % (40.1-51.0); HEMOGLOBIN 8.2 g/dL (13.7-17.5); MCHC 30.7 g/dl (32.3-36.5); MEAN CELL VOLUME 90.2 fl (79.0-92.2); MEAN PLT VOLUME 9.7 fl (9.4-12.4); MONOCYTE # 0.95 x10^3/uL (0.30-0.82); MONOCYTE % 7.4 % (5.3-12.2); PLATELET COUNT 418 x10^3/uL (163-337); RDW 16.9 % (12.2-16.6)
[2024-11-19] MEDS: FUROSEMIDE 40 MG/4 ML INJECTABLE VIAL IVPUSH ONE (11:22)
[2024-11-19] MEDS: DEXTROSE 5%-LACTATED RINGERS 1,000 ML IV SCH (18:38)
[2024-11-19] MEDS: SODIUM CHLORIDE 500 ML IV STA (21:33)
[2024-11-19] MEDS ORDERED: HEPARIN NA (PORCINE) 5,000 UNITS/ML 1ML VIAL SQ SCH (22:00)
[2024-11-20 10:38] LABS: ABSOLUTE IMMATURE GRANULOCYTES 0.12 x10^3/uL (0.0-0.031); BASOPHILS # 0.05 x10^3/uL (0.01-0.08); EOSINOPHIL % 4.8 % (0.8-7.0); EOSINOPHILS # 0.68 x10^3/uL (0.04-0.54); HEMATOCRIT 25.3 % (40.1-51.0); HEMOGLOBIN 7.8 g/dL (13.7-17.5); MCHC 30.8 g/dl (32.3-36.5); MEAN CELL VOLUME 90.7 fl (79.0-92.2); MEAN PLT VOLUME 9.1 fl (9.4-12.4); MONOCYTE # 0.81 x10^3/uL (0.30-0.82); MONOCYTE % 5.7 % (5.3-12.2); PLATELET COUNT 416 x10^3/uL (163-337); RDW 17.1 % (12.2-16.6)
[2024-11-20 10:56] LABS: POTASSIUM 4.2 mmol/L (3.5-5.1)
[2024-11-20 11:00] LABS: ALBUMIN 1.2 g/dl (3.4-5.0); BLOOD UREA NITROGEN 9.3 mg/dL (7-18); CALCIUM 8.8 mg/dL (8.5-10.1)
[2024-11-20 11:03] LABS: CREATININE 0.2 mg/dL (0.55-1.3)
[2024-11-20 11:05] LABS: BILIRUBIN,TOTAL 0.3 mg/dL (0.2-1); TOT PROT 5.3 g/dl (6.4-8.2)
[2024-11-20] MEDS: HEPARIN NA (PORCINE) 5,000 UNITS/ML 1ML VIAL SQ SCH (15:51)
[2024-11-21 07:37] LABS: BASOPHILS # 0.06 x10^3/uL (0.01-0.08); HEMOGLOBIN 8.5 g/dL (13.7-17.5); MEAN PLT VOLUME 9.6 fl (9.4-12.4); PLATELET COUNT 466 x10^3/uL (163-337)
[2024-11-21 07:38] LABS: ABSOLUTE IMMATURE GRANULOCYTES 0.17 x10^3/uL (0.0-0.031); EOSINOPHIL % 6.8 % (0.8-7.0); EOSINOPHILS # 1.16 x10^3/uL (0.04-0.54); HEMATOCRIT 27.3 % (40.1-51.0); MCHC 31.1 g/dl (32.3-36.5); MEAN CELL VOLUME 90.4 fl (79.0-92.2); MONOCYTE # 1.13 x10^3/uL (0.30-0.82); MONOCYTE % 6.6 % (5.3-12.2); RDW 17.2 % (12.2-16.6)
[2024-11-21 07:40] LABS: POTASSIUM 4.2 mmol/L (3.5-5.1)
[2024-11-21 07:48] LABS: ALBUMIN 1.3 g/dl (3.4-5.0); BLOOD UREA NITROGEN 11.4 mg/dL (7-18); CALCIUM 8.6 mg/dL (8.5-10.1)
[2024-11-21 07:51] LABS: CREATININE 0.2 mg/dL (0.55-1.3)
[2024-11-21 07:52] LABS: BILIRUBIN,TOTAL 0.3 mg/dL (0.2-1)
[2024-11-21 07:53] LABS: TOT PROT 5.5 g/dl (6.4-8.2)
[2024-11-21 20:29] VITALS: RESP 19
[2024-11-22 06:29] LABS: ABSOLUTE IMMATURE GRANULOCYTES 0.14 x10^3/uL (0.0-0.031); BASOPHILS # 0.06 x10^3/uL (0.01-0.08); EOSINOPHIL % 7.2 % (0.8-7.0); EOSINOPHILS # 1.25 x10^3/uL (0.04-0.54); HEMATOCRIT 26.3 % (40.1-51.0); HEMOGLOBIN 8.1 g/dL (13.7-17.5); MCHC 30.8 g/dl (32.3-36.5); MEAN PLT VOLUME 9.6 fl (9.4-12.4); MONOCYTE % 5.8 % (5.3-12.2); PLATELET COUNT 450 x10^3/uL (163-337)
[2024-11-22 09:45] VITALS: PULSE 85
[2024-11-22 14:50] VITALS: TEMP 98.6
[2024-11-22 14:51] VITALS: BP 125/61
== END 2024-11-22 15:40 | disposition hospice, inpatient (51) | DRG 871 ==
LOC: JER 08:43 → JERBED 11:51 → J4S 18:06
PROVIDERS: ATTEND Internal Medicine
DX: A41.59 Other Gram-negative sepsis (principal); E43 Unspecified severe protein-calorie malnutrition; J69.0 Pneumonitis due to inhalation of food and vomit; J96.01 Acute respiratory failure with hypoxia; E46 Unspecified protein-calorie malnutrition; R64 Cachexia; I10 Essential (primary) hypertension; F03.90 Unspecified dementia, unspecified severity, without behavioral disturbance, psychotic disturbance, mood disturbance, and anxiety; J45.909 Unspecified asthma, uncomplicated; C61 Malignant neoplasm of prostate; E78.5 Hyperlipidemia, unspecified; Z68.20 Body mass index [BMI] 20.0-20.9, adult; I25.10 Atherosclerotic heart disease of native coronary artery without angina pectoris; Z95.1 Presence of aortocoronary bypass graft
CPT/HCPCS: 0241U-QW; 36415; 71045-TC-FY; 80048; 80053; 81003; 82272; 82803; 82962; 83605; 83735; 84100; 84484; 85025; 85027; 85610; 85730; 86850; 86900; 86901; 87040; 87070; 87086; 87205; 87481; 93005; 93010; 94640; 99291